=== PATIENT | female | born 1995 | race Caucasian/White ===

== ENCOUNTER → 2018-08-18 12:17 | Outpatient (CLI) | payer OTHER, MEDICAID, SELFPAY | PROVIDERS: PCP Family Medicine; Visit Provider Physician Assistant | DX: N89.8 Other specified noninflammatory disorders of vagina (principal) | CPT/HCPCS: 87210 ==

== ENCOUNTER → 2018-09-27 09:51 | Outpatient (CLI) | payer OTHER, MEDICAID, SELFPAY ==
--- NOTE | 2018-09-27 09:53 | DI.US.S_ITS ---
PROCEDURE: US PELVIC COMPLETE INDICATIONS: PAINFUL INTERCOURSE TECHNIQUE: Real-time scanning was performed of the pelvic organs, with image documentation. Additional endovaginal scanning was necessary due to incomplete visualization of the adnexal and endometrial structures by transabdominal scanning. COMPARISON: None. FINDINGS: Transabdominal scanning: Limited scanning through the kidneys shows no hydronephrosis. No pathologic free abdominal or pelvic fluid. Endovaginal scanning: Uterus: Uterus is normal in size at 7.4 x 3.8 x 5.4 cm. The endometrium measures 6 mm in combined thickness. Ovaries: Bilateral ovaries are normal in sonographic appearance. Right ovary measures 4.8 x 1.5 x 2.1 cm. Left ovary measures 3.6 x 1.1 x 1.5 cm. IMPRESSION: Normal sonographic evaluation of the pelvis. Dictated by: Thad Rodriguez M.D. on 09/27/2018 at 16:49 Approved by: Thad Rodriguez M.D. on 09/27/2018 at 16:51
== END ==
PROVIDERS: PCP Family Medicine; Visit Provider Registered Nurse
DX: N94.10 Unspecified dyspareunia (principal)
CPT/HCPCS: 76830; 76856

== ENCOUNTER → 2018-11-01 20:44 | Outpatient (CLI) | payer OTHER, MEDICAID, SELFPAY | PROVIDERS: PCP Family Medicine; Visit Provider Physician Assistant | DX: J02.9 Acute pharyngitis, unspecified (principal); J35.1 Hypertrophy of tonsils | CPT/HCPCS: 87070; 87077; 87147 ==

== ENCOUNTER 2018-11-09 19:37 | Emergency (ER) | payer OTHER, MEDICAID, SELFPAY ==
[2018-11-09 19:41] VITALS: BP 116/77; PULSE 103; RESP 16; TEMP 37.3; O2SAT 95; BMI 21.7
--- NOTE | 2018-11-09 19:59 | ED_ITS ---
HPI - Allergic Reaction General Chief complaint: Allergic Reaction Stated complaint: states severe reaction to antibiotic Time Seen by Provider: 11/09/18 19:59 Source: patient Mode of arrival: ambulatory Limitations: no limitations History of Present Illness HPI narrative: 23-year-old female here for evaluation of which she thinks is an allergic reaction to antibiotics. Approximately 7 days ago she was started on Augmentin for a sinus infection. She stated that she has not had any issues until this morning. She states she has a rash on her face and on her back and on her abdomen. She states that it is itching. No problems breathing however she did have a ?itchy? throat earlier today. She did take some Benadryl would seem to improve symptom. Has not had any return of that symptom. Related Data Previous Rx's Medication Instructions Recorded triamcinolone acetonide 0.025 % 1 applictn TOPICAL BID #80 gram 06/08/18 topical cream norethindrone 1 mg-ethinyl 1 tab PO DAILY #140 tab 08/17/18 estradiol 10 mcg (24)-iron 10 mcg(2) tablet amoxicillin 875 mg-potassium 1 tab PO BID #20 tab 11/01/18 clavulanate 125 mg tablet fluconazole 150 mg tablet 150 mg PO ONCE #2 tab 11/08/18 acyclovir 400 mg tablet 400 mg PO BID #60 tab 11/09/18 prednisone 40 mg PO DAILY 7 Days #14 tab 11/09/18 Allergies Allergy/AdvReac Type Severity Reaction Status Date / Time Penicillins Allergy Intermediate rash Verified 11/09/18 09:38 Review of Systems Constitutional Denies fever(s) Eyes Denies change in vision and Denies diplopia ENT Comments: ?Itchy ?throat Cardiovascular Denies chest pain and Denies dyspnea Respiratory Denies cough and Denies dyspnea Gastrointestinal Gastrointestinal: Denies abdominal pain, Denies nausea and Denies vomiting Genitourinary Denies dysuria Musculoskeletal Denies myalgias and Denies arthralgias Integumentary/Breasts Comments: Rash Neurologic Denies behavioral changes Psychiatric Denies behavioral changes Hematologic/Lymphatic Denies easy bleeding and Denies easy bruising Allergic/Immunologic Denies urticaria [facility] Medical History Anxiety (Chronic) Asthma (Chronic) Eczema (Chronic 2015) Gluten-sensitive enteropathy (Chronic 2015) Hayfever (Chronic) Social History Smoking Status: Former smoker alcohol intake: current substance use type: marijuana Exam Initial Vital Signs Initial Vital Signs: Vital Signs Temperature 99.2 F 11/09/18 19:41 Pulse Rate 103 H 11/09/18 19:41 Respiratory Rate 16 11/09/18 19:41 Blood Pressure 116/77 11/09/18 19:41 Pulse Oximetry 95 11/09/18 19:41 Const General: cooperative, healthy appearing, comfortable, well developed, well groomed and No acute distress Orientation: alert, awake and oriented x3 HENMT Head: normal to inspection and normocephalic Resp Effort & Inspection: normal respiratory effort Auscultation: clear to auscultation bilaterally Cardio Rate: regular rate Rhythm: regular rhythm Skin Other: Multiple urticarial lesions on her face and abdomen and chest and back and upper extremities. Neuro General: alert, awake and oriented x3 Extrem General: normal to inspection and capillary refill normal Course Orders Ordered: Discontinued Medications Diphenhydramine HCl (Benadryl) 25 mg IV NOW ONE Stop: 11/09/18 20:06 Last Admin: 11/09/18 20:21 Dose: 25 mg Methylprednisolone (Solu-Medrol 125 Mg Vial) 125 mg IV NOW ONE Stop: 11/09/18 20:06 Last Admin: 11/09/18 20:21 Dose: 125 mg Vital Signs - 8 hr 11/09/18 19:41 11/09/18 21:25 Temperature 99.2 F 98.4 F Pulse Rate 103 H 80 Respiratory Rate 16 16 Blood Pressure 116/77 Blood Pressure [Left Arm] 101/64 Pulse Oximetry 95 100 MDM - Allergic Reaction MDM Narrative Medical decision making narrative: Patient without signs of anaphylaxis. She was given Benadryl and Solu-Medrol here in the emergency department with only minimal if any improvement of her symptoms while she is here. She is not in any respiratory distress. Will send home with prednisone. She does have Claritin and Benadryl at home. She is going to stop the Augmentin. We did discuss return precautions. She expressed understanding and agreement with plan. Discharge Plan Departure Patient Disposition: Home Clinical Impression: Allergic reaction Qualifiers: Encounter type: initial encounter Qualified Code(s): T78.40XA - Allergy, unspecified, initial encounter Discharge Date/Time: 11/09/18 21:41 Interventions: ED Discharge Assessment Last Done: 11/09/18 21:40 Instructions: DI for General Allergic Reactions, DI for Adverse Drug Reaction -- Allergic Activity Restrictions/Additional Instructions: Take the prednisone starting tomorrow like we discussed. I also recommend you t jessy a Claritin on a daily basis. You can take the Benadryl like we discussed as well. On Monday contact your primary provider for a follow-up. Recommend you stop taking the Augmentin. Return to the emergency department for any new or worsening symptoms Prescriptions: New prednisone 20 mg tablet 40 mg PO DAILY 7 Days Qty: 14 RF: 0 No Action amoxicillin-pot clavulanate [Augmentin] 875-125 mg tablet 1 tab PO BID Qty: 20 RF: 0 fluconazole 150 mg tablet 150 mg PO ONCE Qty: 2 RF: 1 acyclovir 400 mg tablet 400 mg PO BID Qty: 60 RF: 1 triamcinolone acetonide 0.025 % cream 1 applictn Topical BID Qty: 80 RF: 0 Lo Loestrin Fe 1 mg-10 mcg (24)/10 mcg (2) tablet 1 tab PO DAILY Qty: 140 RF: 2 Referrals: Mindy Hurst DO [Primary Care Provider] -
[2018-11-09] MEDS: methylPREDNISolone 125 MG/2 ML VIAL IV (20:21)
[2018-11-09] MEDS: diphenhydrAMINE 50 MG/ML VIAL 25 MG IV (20:21)
--- NOTE | 2018-11-09 20:29 | PC.NURSE ---
Pt with rash which covers complete face on chest back and abdomen more solid on the upper part of body and turns into spots the lower down. rash seen on hands
[2018-11-09 21:25] VITALS: BP 101/64; PULSE 80; RESP 16; TEMP 36.9; O2SAT 100
== END 2018-11-09 21:41 | disposition home or self-care (01) ==
PROVIDERS: Emergency Provider Emergency Medicine; PCP Family Medicine
DX: R21 Rash and other nonspecific skin eruption (principal); T78.40XA Allergy, unspecified, initial encounter
CPT/HCPCS: 96374; 96375; 99282; 99284; J1200; J2930

== ENCOUNTER 2018-11-11 09:07 | Emergency (ER) | payer OTHER, MEDICAID, SELFPAY ==
[2018-11-11 09:10] VITALS: BP 126/71; PULSE 93; RESP 18; TEMP 36.9; O2SAT 100; BMI 21.7
[2018-11-11] MEDS: EPINEPHrine 1 MG/ML AMPUL 0.5 MG IM (09:21)
[2018-11-11] MEDS: methylPREDNISolone 125 MG/2 ML VIAL IV (09:21)
[2018-11-11] MEDS: diphenhydrAMINE 50 MG/ML VIAL 25 MG IV (09:21)
[2018-11-11] MEDS: FAMOTIDINE 20 MG/50 ML PIGGYBACK 200 MG IV (09:22)
--- NOTE | 2018-11-11 09:30 | ED_ITS ---
HPI - Allergic Reaction General Chief complaint: Allergic Reaction Stated complaint: Allergic reaction Time Seen by Provider: 11/11/18 09:12 Source: patient Mode of arrival: ambulatory Limitations: no limitations History of Present Illness HPI narrative: 23-year-old female, former smoker with benign medical history returns for a repeat evaluation of allergic reaction. About 8 days ago she was placed on Augmentin for the treatment of sinus infection. Late into the week she began developing a widespread itchy rash, at no point has she had any swelling of tongue, lip or throat, no trouble breathing. She was seen and evaluated in the emergency department on Monday night and was given Benadryl, Solu-Medrol and prescription for prednisone. She has stopped the Augmentin and been taking the other medications as directed but presents today because her rash is a bit more widespread MD complaint: allergic reaction Onset (ago): day(s) Exposure: medication Symptoms: rash and itching Severity: moderate Treatment prior to arrival: benadryl and steroids Previous Allergic Reaction History: prior ED visit(s) Related Data Previous Rx's Medication Instructions Recorded triamcinolone acetonide 0.025 % 1 applictn TOPICAL BID #80 gram 06/08/18 topical cream norethindrone 1 mg-ethinyl 1 tab PO DAILY #140 tab 08/17/18 estradiol 10 mcg (24)-iron 10 mcg(2) tablet amoxicillin 875 mg-potassium 1 tab PO BID #20 tab 11/01/18 clavulanate 125 mg tablet fluconazole 150 mg tablet 150 mg PO ONCE #2 tab 11/08/18 acyclovir 400 mg tablet 400 mg PO BID #60 tab 11/09/18 prednisone 40 mg PO DAILY 7 Days #14 tab 11/09/18 Allergies Allergy/AdvReac Type Severity Reaction Status Date / Time Penicillins Allergy Intermediate rash Verified 11/09/18 09:38 Review of Systems Constitutional Denies chills, Denies fever(s), Denies lethargy and Denies weakness Eyes Denies change in vision, Denies eye discharge, Denies irritation and Denies loss of vision ENT Ears, Nose, Mouth, and Throat: Denies change in voice, Denies neck pain and Denies sore throat Cardiovascular Denies chest pain, Denies irregular heart rhythm, Denies lightheadedness, Denies palpitations, Denies dyspnea, Denies dyspnea on exertion and Denies orthopnea Respiratory Denies cough, Denies dyspnea, Denies dyspnea on exertion and Denies wheezing Gastrointestinal Gastrointestinal: Denies abdominal pain, Denies change in bowel habits, Denies diarrhea, Denies nausea and Denies vomiting Genitourinary Denies hematuria, Denies flank pain, Denies urinary incontinence and Denies urinary urgency Musculoskeletal Denies neck pain Integumentary/Breasts Reports pruritus, Denies erythema, Denies rash and Denies wounds Neurologic Denies confusion, Denies loss of vision and Denies weakness Psychiatric Denies anxiety, Denies confusion, Denies depression, Denies homicidal ideation and Denies suicidal ideation Endocrine Denies palpitations Hematologic/Lymphatic Denies easy bruising Allergic/Immunologic Denies wheezing PFSH Medical History Anxiety (Chronic) Asthma (Chronic) Eczema (Chronic 2015) Gluten-sensitive enteropathy (Chronic 2014) Hayfever (Chronic) Surgical History No history of previous surgery (Resolved 06/06/16) Family History Father Age: 55 Essential hypertension High cholesterol Grandfather Age: 72 Rectal cancer Grandmother Age: 71 Sjogren's disease Mother Age: 51 Gluten free diet Peanut allergy Grandfather Age: 83 Heart disease Brother No problems noted. Grandmother No problems noted. Sister No problems noted. Social History Smoking Status: Former smoker alcohol intake: current substance use type: marijuana Family History Father Age: 55 Essential hypertension High cholesterol Grandfather Age: 72 Rectal cancer Grandmother Age: 71 Sjogren's disease Mother Age: 51 Gluten free diet Peanut allergy Grandfather Age: 83 Heart disease Brother No problems noted. Grandmother No problems noted. Sister No problems noted. Social History Smoking Status: Current some day smoker alcohol intake: current substance use type: marijuana Exam Narrative Exam Narrative: GENERAL: 23F appears stated age, obviously uncomfortable and itching HEAD: Atraumatic. Normocephalic. No temporal or scalp tenderness. EYES: Pupils equal round and reactive. Extraocular motions intact. No scleral icterus. No injection or drainage. ENT: No mucosal sloughing. No swelling of lips, tongue, or throat. Nose without bleeding, purulent drainage or septal hematoma. Throat without erythema, tonsillar hypertrophy or exudate. Uvula midline. Airway patent. NECK: Trachea midline. No JVD or lymphadenopathy. Supple, nontender, no meningeal signs. CARDIOVASCULAR: Regular rate and rhythm without murmurs, gallops, or rubs. RESPIRATORY: Clear to auscultation. Breath sounds equal bilaterally. No wheezes, rales, or rhonchi. GASTROINTESTINAL: Abdomen soft, non-tender, nondistended. No hepato- splenomegaly, or palpable masses. No guarding. EXTREMITIES: No clubbing, cyanosis, or edema. No joint tenderness, effusion, or edema noted. BACK: Nontender without deformity or crepitance. No flank tenderness. NEURO: AOx3. SKIN: widespread blanching maculopapular rash. No urticaria. No bullae or Nikolsky Sign Initial Vital Signs Initial Vital Signs: Vital Signs Temperature 98.4 F 11/11/18 09:10 Pulse Rate 93 H 11/11/18 09:10 Respiratory Rate 18 11/11/18 09:10 Blood Pressure 126/71 11/11/18 09:10 Pulse Oximetry 100 11/11/18 09:10 Course Orders Ordered: Discontinued Medications Diphenhydramine HCl (Benadryl) 25 mg IV NOW ONE Stop: 11/11/18 09:14 Last Admin: 11/11/18 09:21 Dose: 25 mg Epinephrine HCl (Adrenalin) 0.5 mg IM NOW ONE Stop: 11/11/18 09:14 Last Admin: 11/11/18 09:21 Dose: 0.5 mg Famotidine (Pepcid) 20 mg in 50 mls @ 200 mls/hr IV NOW ONE Stop: 11/11/18 09:27 Last Infusion: 11/11/18 09:53 Dose: 0 mls/hr Admin: 11/11/18 09:22 Dose: 200 mls/hr Methylprednisolone (Solu-Medrol 125 Mg Vial) 125 mg IV NOW ONE Stop: 11/11/18 09:14 Last Admin: 11/11/18 09:21 Dose: 125 mg Vital Signs - 8 hr 11/11/18 11:10 11/11/18 12:33 Pulse Rate 93 H 78 Respiratory Rate 16 Blood Pressure [Right Arm] 114/56 L 111/63 Pulse Oximetry 98 100 MDM - Allergic Reaction Lab Data Result diagrams: 11/11/18 09:15 11/11/18 09:15 Lab Results 11/11/18 11/11/18 Range/Units 09:15 09:15 WBC 6.1 (4.5-11.0) X10^3/uL RBC 4.39 (4.0-5.2) X10^6/uL Hgb 13.1 (12.0-16.0) g/dL Hct 39.3 (36-46) % MCV 89.5 (80-100) fL MCH 29.8 (26-34) PG MCHC 33.3 (30-36) % RDW 14.2 (11.6-14.8) % Plt Count 312 (150-400) X10^3/uL Neut % (Auto) 77.1 H (50-75) % Lymph % (Auto) 18.9 L (25-40) % [place]oula % (Auto) 2.6 L (3-14) % Eos % (Auto) 1.0 L (2-4) % Baso % (Auto) 0.4 (0-2) % Neut # (Auto) 4700 (9578-2842) /uL Lymph # (Auto) 1200 (3079-7226) /uL [place] # (Auto) 200 (0-900) /uL Eos # (Auto) 100 (0-450) /uL Baso # (Auto) 0 (0-100) /uL Sodium 140 (137-145) mmol/L Potassium 3.9 (3.4-5.1) mmol/L Chloride 104 (98-107) mmol/L Carbon Dioxide 29 (22-32) mmol/L BUN 17 (7-17) mg/dL Creatinine 0.90 (0.52-1.04) mg/dL Estimated GFR > 60.0 (>60) mL/min BUN/Creatinine Ratio 18.9 (6-22) Glucose 85 (70-100) mg/dL Calcium 9.3 (8.4-10.2) mg/dL Total Creatine Kinase 65 (30-135) U/L Point of Care Testing Test Results Negative MDM Narrative Medical decision making narrative: Multiple etiologies for patient's symptoms considered including: [SJS/TENS but no intraoral or systemic findings, allergic reaction vs. drug hypersensitivity] Patient's symptoms improved or duration of stay with above-stated therapies. Still has rash, but improved Findings and discharge diagnosis discussed with patient/family followed by verbalization of understanding Return precautions discussed with patient/family whom verbalize understanding. Discharge Plan Departure Patient Disposition: Home Clinical Impression: Allergic reaction Qualifiers: Encounter type: subsequent encounter Qualified Code(s): T78.40XD - Allergy, unspecified, subsequent encounter Discharge Date/Time: 11/11/18 12:42 Interventions: ED Discharge Assessment Last Done: 11/11/18 12:42 Instructions: DI for Hives Activity Restrictions/Additional Instructions: *You have been diagnosed with allergic reaction, drug hypersensitivity *What to do: *Take medications as directed *Follow up with your primary care provider in 2-3 days, call for an appointment. Let them know you were seen in the Emergency Department and that we ask that you be seen in follow up *Return to ER if you should have any new, worsening or concerning symptoms Prescriptions: No Action amoxicillin-pot clavulanate [Augmentin] 875-125 mg tablet 1 tab PO BID Qty: 20 RF: 0 fluconazole 150 mg tablet 150 mg PO ONCE Qty: 2 RF: 1 acyclovir 400 mg tablet 400 mg PO BID Qty: 60 RF: 1 triamcinolone acetonide 0.025 % cream 1 applictn Topical BID Qty: 80 RF: 0 Lo Loestrin Fe 1 mg-10 mcg (24)/10 mcg (2) tablet 1 tab PO DAILY Qty: 140 RF: 2 prednisone 20 mg tablet 40 mg PO DAILY 7 Days Qty: 14 RF: 0 Referrals: Mindy Hurst DO [Primary Care Provider] -
[2018-11-11 10:21] VITALS: BP 102/55; PULSE 105; RESP 16; O2SAT 99
[2018-11-11 11:03] LABS: Add Manual Diff / Slide Review NO; Basophils Absolute Auto 0 /uL (0-100); Basophils Percent Auto 0.4 % (0-2); Eosinophils Absolute Auto 100 /uL (0-450); Hematocrit 39.3 % (36-46); Hemoglobin 13.1 g/dL (12.0-16.0); Lymphocytes Absolute Auto 1200 /uL (1100-4500); Lymphocytes Percent Auto 18.9 % (25-40); Mean Corpuscular HGB Conc 33.3 % (30-36); Mean Corpuscular Hemoglobin 29.8 PG (26-34); Mean Corpuscular Volume 89.5 fL (80-100); Monocytes Absolute Auto 200 /uL (0-900); Monocytes Percent Auto 2.6 % (3-14); Neutrophils Absolute Auto 4700 /uL (1500-7000); Neutrophils Percent Auto 77.1 % (50-75); Platelet Count 312 X10^3/uL (150-400); Red Blood Cell Count 4.39 X10^6/uL (4.0-5.2); Red Cell Distribution Width 14.2 % (11.6-14.8); White Blood Cell Count 6.1 X10^3/uL (4.5-11.0)
[2018-11-11 11:07] LABS: BUN Creatinine Ratio 18.9 (6-22); Blood Urea Nitrogen 17 mg/dL (7-17); Calcium 9.3 mg/dL (8.4-10.2); Carbon Dioxide 29 mmol/L (22-32); Chloride 104 mmol/L (98-107); Creatine Kinase 65 U/L (30-135); Estimated Glomerular Filt Rate > 60.0 mL/min (>60); Glucose 85 mg/dL (70-100); HEMOLYSIS < 15 (0-50); Potassium 3.9 mmol/L (3.4-5.1); Sodium 140 mmol/L (137-145)
[2018-11-11 11:10] VITALS: BP 114/56; PULSE 93; O2SAT 98
[2018-11-11 12:33] VITALS: BP 111/63; PULSE 78; RESP 16; O2SAT 100
== END 2018-11-11 12:42 | disposition home or self-care (01) ==
PROVIDERS: Emergency Provider Emergency Medicine; PCP Family Medicine
DX: R21 Rash and other nonspecific skin eruption (principal); T78.40XD Allergy, unspecified, subsequent encounter
CPT/HCPCS: 36591; 80048; 81025; 82550; 85025; 96365; 96372; 96375; 99283; 99284; J0171; J1200; J2930

== ENCOUNTER → 2018-12-05 14:14 | Outpatient (CLI) | payer OTHER, MEDICAID, SELFPAY ==
[2018-12-05 15:59] LABS: Appearance Urine UA CLEAR; Bilirubin Urine UA NEGATIVE (NEGATIVE); Color Urine UA YELLOW; Glucose Urine UA NEGATIVE (Negative); Ketones Urine UA NEGATIVE (NEGATIVE); Leukocyte Esterase Urine UA TRACE (NEGATIVE); Nitrite Urine UA NEGATIVE (Negative); Occult Blood Urine UA 2+ (Negative); Protein Urine UA NEGATIVE (Negative); Urobilinogen Urine UA 0.2 E.U./dL (0.2)
[2018-12-05 16:06] LABS: RBC Urine 10-30/HPF (0-5/HPF); WBC Urine 5-10/HPF (0-5/HPF)
[2018-12-05 16:07] LABS: Amorphous Sediment Urine 1+; Bacteria Urine Moderate (10-30); Culture Indicated Urine Specimen Cultured; Squamous Epithelial Cell Urine 0-1 /HPF (0-5/HPF)
== END ==
PROVIDERS: PCP Family Medicine; Visit Provider Registered Nurse
DX: R39.89 Other symptoms and signs involving the genitourinary system (principal)
CPT/HCPCS: 81001; 87077; 87086; 87186

== ENCOUNTER → 2019-04-01 16:46 | Outpatient (CLI) | payer OTHER, MEDICAID, SELFPAY | PROVIDERS: PCP Family Medicine; Visit Provider Family Medicine | DX: R30.0 Dysuria (principal) | CPT/HCPCS: 87077; 87086; 87186 ==

== ENCOUNTER → 2019-07-02 19:43 | Outpatient (ROUT) | payer OTHER, MEDICAID, SELFPAY ==
[2019-07-02 21:13] LABS: Urine N gonorrhoeae NOT DETECTED
[2019-07-02 21:14] LABS: Urine Chlamydia NOT DETECTED
== END ==
PROVIDERS: PCP Family Medicine; Visit Provider Family Medicine
DX: Z20.2 Contact with and (suspected) exposure to infections with a predominantly sexual mode of transmission (principal)
CPT/HCPCS: 87491; 87591

== ENCOUNTER → 2020-04-16 14:49 | Outpatient (CLI) | payer OTHER, MEDICAID, SELFPAY ==
--- NOTE | 2020-04-16 14:50 | DI.RAD.S_ITS ---
PROCEDURE: XR FINGER RT MIN 2V INDICATIONS: poss glass in R 2nd finger at base TECHNIQUE: AP hand, 2 views of the right 2nd finger(s) acquired. COMPARISON: None. FINDINGS: Bones: No fractures or dislocations. No suspicious bony lesions. Soft tissues: No suspicious soft tissue calcifications. 1 millimeter radiodense foreign body noted in the soft tissues adjacent to the mid and medial margin of the left 2nd flange. of the IMPRESSION: 1 millimeter radiodense foreign body in the medial and proximal soft tissues of the 2nd finger. Dictated by: Camryn Perez MD, PhD on 04/16/2020 at 15:11 Approved by: Camryn Perez MD, PhD on 04/16/2020 at 15:13
== END ==
PROVIDERS: PCP Family Medicine; Referring Provider Nurse Practitioner; Visit Provider Nurse Practitioner
DX: M79.644 Pain in right finger(s) (principal); M79.5 Residual foreign body in soft tissue
CPT/HCPCS: 73140

== ENCOUNTER → 2020-08-13 13:24 | Outpatient (CLI) | payer OTHER, MEDICAID, SELFPAY ==
[2020-08-13 13:53] LABS: Appearance Urine UA CLEAR; Bilirubin Urine UA NEGATIVE (NEGATIVE); Color Urine UA YELLOW; Glucose Urine UA NEGATIVE (Negative); Ketones Urine UA 1+ (NEGATIVE); Leukocyte Esterase Urine UA NEGATIVE (NEGATIVE); Nitrite Urine UA NEGATIVE (Negative); Occult Blood Urine UA 2+ (Negative); Protein Urine UA NEGATIVE (Negative); Urobilinogen Urine UA 0.2 E.U./dL (0.2)
[2020-08-13 14:25] LABS: pH Urine UA 6.5 (4.5-8.0)
[2020-08-13 14:26] LABS: Bacteria Urine Moderate (10-30); Culture Indicated Urine Cult Not Indicated; RBC Urine 1-5/HPF (0-5/HPF); Squamous Epithelial Cell Urine 1-5 /HPF (0-5/HPF); WBC Urine 0-1/HPF (0-5/HPF)
[2020-08-13 14:50] LABS: Add Manual Diff / Slide Review NO; Basophils Absolute Auto 0 /uL (0-100); Basophils Percent Auto 0.3 % (0-2); Eosinophils Absolute Auto 100 /uL (0-450); Eosinophils Percent Auto 1.2 % (2-4); Hematocrit 35.4 % (36-46); Hemoglobin 12.2 g/dL (12.0-16.0); Lymphocytes Absolute Auto 1600 /uL (1100-4500); Lymphocytes Percent Auto 22.2 % (25-40); Mean Corpuscular HGB Conc 34.4 % (30-36); Mean Corpuscular Volume 90.2 fL (80-100); Monocytes Absolute Auto 400 /uL (0-900); Monocytes Percent Auto 5.5 % (3-14); Neutrophils Absolute Auto 5000 /uL (1500-7000); Neutrophils Percent Auto 70.8 % (50-75); Platelet Count 270 X10^3/uL (150-400); Red Blood Cell Count 3.92 X10^6/uL (4.0-5.2); Red Cell Distribution Width 12.9 % (11.6-14.8); White Blood Cell Count 7.1 X10^3/uL (4.5-11.0)
[2020-08-13 16:47] LABS: Hepatitis B Surface Antigen NEGATIVE s/c (NEGATIVE); Rubella Antibody IgG 16.8 IU/mL (>15)
[2020-08-13 17:02] LABS: HIV 1 & 2 Ab/Ag 4th Gen Combo NEGATIVE (NEGATIVE); Hep C Virus Ab w/Reflex Quant NEGATIVE s/c (NEGATIVE)
[2020-08-14 07:10] LABS: RPR Screen Non Reactive (Non Reactive)
[2020-08-14 14:22] LABS: Varicella IgG Antibody 274 index (Immune >165)
== END ==
PROVIDERS: PCP Family Medicine; Referring Provider Obstetrics & Gynecology; Visit Provider Obstetrics & Gynecology
DX: Z34.81 Encounter for supervision of other normal pregnancy, first trimester (principal)
CPT/HCPCS: 36415; 80055; 81003; 81015; 86787; 86803; 86850; 86900; 86901; 87389

== ENCOUNTER → 2020-08-14 15:23 | Outpatient (CLI) | payer OTHER, MEDICAID, SELFPAY | PROVIDERS: PCP Family Medicine; Referring Provider Obstetrics & Gynecology; Visit Provider Obstetrics & Gynecology | DX: Z36.0 Encounter for antenatal screening for chromosomal anomalies (principal); Z3A.15 15 weeks gestation of pregnancy | CPT/HCPCS: 36415 ==

== ENCOUNTER → 2020-09-11 16:55 | Outpatient (CLI) | payer OTHER, MEDICAID, SELFPAY ==
[2020-09-15 19:07] LABS: AFP Value 63.5 ng/mL (.); Insulin Dep Diabetes No (.); OSBR Risk 1IN 10000 (.); Results Report (.); Test Results *Screen Negative* (.)
== END ==
PROVIDERS: PCP Family Medicine; Referring Provider Obstetrics & Gynecology; Visit Provider Obstetrics & Gynecology
DX: Z34.82 Encounter for supervision of other normal pregnancy, second trimester (principal); Z3A.19 19 weeks gestation of pregnancy
CPT/HCPCS: 36415; 82105

== ENCOUNTER → 2020-09-15 09:11 | Outpatient (CLI) | payer OTHER, MEDICAID, SELFPAY ==
--- NOTE | 2020-09-15 09:15 | DI.US.S_ITS ---
PROCEDURE: US OB >= 14 WEEKS FETUS INDICATIONS: ANATOMY OUTSIDE/PRIOR DATING DATA: Last menstrual period (LMP): 04/15/20 . LMP-based estimated date of delivery (DENISA): 01/20/21 . First dating scan (date and location): 06/19/20, by Dr. Joya. Estimated date of delivery (DENISA) from first dating scan: 02/01/21 . TECHNIQUE: Real-time scanning was performed of the fetus, with image documentation and biometric measurements. Endovaginal scanning: Not needed COMPARISON: [facility], , OB <= 14 WEEKS FETUS, 06/19/2020, 8:51. FINDINGS: General: A single living intrauterine gestation is present. Presentation: Breech. Placenta: Placental position is posterior , without previa. Amniotic fluid index: 12.1 cm, normal range is 5-24 cm. heart rate: 141 beats per minute. Maternal cervical canal: 4.5 cm long. Normal lower limit is 2.5 cm. biometrics: Biparietal diameter: 4.7 cm, 20 weeks 2 days Head circumference: 17.6 cm, 20 weeks 1 day Abdominal circumference: 16.2 cm, 21 weeks 2 days Femur length: 3.3 cm, 20 weeks 1 day Estimated gestational age from initial scan: 20 weeks 1 day Composite gestational age from present scan: 20 weeks 3 days Estimated weight and percentile: 370 g, 76th percentile Measurement variability for biometric dating: +/- 7 days from 14 weeks to 15 weeks 6 days gestation, +/- 10 days from 16 weeks to 21 weeks 6 days gestation, +/- 2 weeks from 22 weeks to 27 weeks 6 days gestation, +/- 3 weeks for 28 weeks gestation or later. weight reference: 4500 g or EFW >90/95% is considered macrosomia or large for gestational age. EFW <10% is small for gestational age. EFW 5% or less is considered intra-uterine growth restriction. Anatomic survey: Neuro: Ventricles are non-dilated at less than 10 mm. Cisterna magna is normal at 3-11 mm. Cerebellum is normal in size and morphology. Nuchal skin fold: Normal at less than 6 mm between 14-21 weeks gestational age. Face: Nose and lips, facial profile are normal. Spine: No evidence for spina bifida. Heart: 4-chambered heart is present, with normal ventricular outflow tracts. Diaphragm: Diaphragm is intact. Stomach: Left-sided stomach is present. Kidneys: No hydronephrosis. Normal is less than 5 mm in 2nd trimester, less than 7 mm in 3rd trimester. Cord: 3-vessel cord has orthotopic insertion. Bladder: Normal in size. Extremities: All 4 extremities identified. IMPRESSION: Single living intrauterine gestation with normal survey of anatomy and delivery date remains projected to be centered on 02/01/21. Dictated by: Baudiloi Mendez M.D. on 09/15/2020 at 12:17 Approved by: Baudilio Mendez M.D. on 09/15/2020 at 12:22
== END ==
PROVIDERS: PCP Family Medicine; Referring Provider Obstetrics & Gynecology; Visit Provider Obstetrics & Gynecology
DX: Z34.82 Encounter for supervision of other normal pregnancy, second trimester (principal); Z3A.20 20 weeks gestation of pregnancy
CPT/HCPCS: 76811

== ENCOUNTER 2020-11-02 10:25 | Emergency (ER) | payer OTHER, MEDICAID, SELFPAY ==
[2020-11-02 10:34] VITALS: BP 123/77; PULSE 98; RESP 18; TEMP 36.9; O2SAT 98
--- NOTE | 2020-11-02 11:35 | ED_ITS ---
HPI - Nausea/Vomiting/Diarrhea General Chief complaint: Nausea/Vomiting/Diarrhea Stated complaint: CAMILA CURRY, 7 MONTHS Time Seen by Provider: 11/02/20 11:35 Source: patient Mode of arrival: Ambulatory Limitations: no limitations History of Present Illness HPI Narrative: This is a 25-year-old female who comes to the emergency department with nausea and vomiting that actually started Monday. She states she had food poisoning. Both her and her father had GI symptoms. At that time she had nausea and vomiting as well as diarrhea. She did have some abdominal discomfort for the generalized. Patient did have a fever but states she was told she had a fever today at the clinic but they did not give her a number. Patient states that today she went to get her eyelashes done, she states she was lying flat started to feel nauseated and sort of lightheaded. When she sat back up she went to the bathroom and threw up several times. She states they appeared to be a little bit of blood in the water of the toilet. Patient denies any new chest pain or pressure. She has had some mild shortness of breath that worsened as she has become more . Patient states that her vomiting from her food poisoning had resolved after a day or 2. She is feeling better and then last night started having nausea and vomiting again overnight, which her appointment for her eyelashes and then had her subsequent episode. Patient has not had any syncope. She has not had any diarrhea today. She has not any black or bloody stools. She denies any dysuria, frequency urgency. She does have some generalized low back discomfort throughout her . She does not specify any flank pain. Patient states she has some pink spotting last week with no additional since. Patient states this is been intermittent throughout her . She denies any katherine vaginal bleeding and denies any fluid leakage. She states she feels baby move regularly. She has had care initially with Dr. Joya and as transition to Dr. Harrington. She states her only medications are prenatals. Denies any surgeries. Patient does not use any tobacco, alcohol or illicit she is accompanied by family the room. Related Data Previous Rx's Medication Instructions Recorded vits no.126-ferrous fum 1 tab PO DAILY 90 Days #90 tab 06/11/20 28 mg iron-folic acid 800 mcg tablet metoclopramide HCl 10 mg tablet 10 mg PO Q6H PRN #20 tab 08/14/20 acyclovir 400 mg tablet See Rx Instructions .ROUTE 10/21/20 .COMPLEX #60 tab Allergies Allergy/AdvReac Type Severity Reaction Status Date / Time Penicillins Allergy Severe rash Verified 10/12/20 16:14 gluten AdvReac Intermediate Sharp Verified 10/12/20 16:14 stomach pain, constipation, nausea. Review of Systems Review of Systems ROS Unobtainable: All systems reviewed & are unremarkable except as noted in HPI and below Patient History Medical History Anxiety (~1994) Arm fracture, right (~2006) Asthma Depression (~2007) Eczema (2015) Finger pain (~04/2020) Gluten-sensitive enteropathy (2014) Hayfever (~2004) Migraines (~2004) Surgical History No history of previous surgery (06/06/16) Family History Father Age: 57 Essential hypertension High cholesterol Grandfather Age: 74 Rectal cancer Grandmother Age: 73 Sjogren's disease Mother Age: 53 Gluten free diet Peanut allergy Grandfather Age: 85 Heart disease Brother No problems noted. Grandmother Myocardial infarction acute Stroke Sister Anxiety Depression Social History marital status: unmarried,living together number of children: 1 household members: spouse and children lives independently: Yes caregiver/support person: No housing: house pets and animals: Yes (2 dogs, safe. ) education level: college occupational status: unemployed current occupational exposures/hazards: No blanquita/mu-ism: Yarsani special blanquita needs: No Smoking Status: Former smoker Tobacco: How many years used: 4 quit status: has quit before alcohol intake: current substance use type: marijuana during the past year weight has: remained stable well-balanced diet: daily or most days daily servings fruits/ve-4 caffeine: Yes (Coffee, aversion lately. ) Type(s) of exercise: walking and normal ROM and activity frequency: daily Smoking Status: Former smoker alcohol intake frequency: a few times a month Substance Use Type: marijuana Exam Narrative Exam Narrative: GENERAL: Alert and oriented x three, opinion female in mild distress. Patient was ambulating back from the bathroom to the room when 1st seen. HEENT: Head normocephalic, atraumatic, EOMI, pupils reactive, face symmetric, moist mucous membranes NECK: Supple, full range of motion CARDIOVASCULAR: Regular rate and rhythm without murmurs, rubs or gallops. RESPIRATORY: Breath sounds equal bilaterally, no wheezes rales or rhonchi. ABDOMEN: Soft, nontender palpation gravid. Normoactive bowel sounds all 4 quadrants. No guarding or rebound, rigidity, no mass : No CVA tenderness EXTREMITIES: Normal range of motion, no clubbing or edema. Neurovascularly intact NEUROLOGICAL: Cranial nerves II through XII grossly intact. Moving all extremities SKIN: Warm, dry, no petechiae, no rashes or lesions. Initial Vital Signs Initial Vital Signs: Vital Signs Temperature 98.5 F 11/02/20 10:34 Pulse Rate 98 H 11/02/20 10:34 Respiratory Rate 18 11/02/20 10:34 Blood Pressure 123/77 11/02/20 10:34 Pulse Oximetry 98 11/02/20 10:34 Course Orders Ordered: ED Orders 11/02/20 11:51 US abdomen limited Stat 11/02/20 12:15 Complete Blood Count AUTO DIFF Stat Comprehensive Metabolic Panel Stat Lipase Stat Discontinued Medications Sodium Chloride (Normal Saline 0.9%) 1,000 mls @ 1,000 mls/hr IV BOLUS ONE Stop: 11/02/20 12:50 Last Infusion: 11/02/20 13:36 Dose: 0 mls/hr Documented by: Admin: 11/02/20 12:11 Dose: 1,000 mls/hr Documented by: NAYELI Ondansetron HCl (Ondansetron 4 Mg/2 Ml Inj) 4 mg IV NOW ONE Stop: 11/02/20 11:52 Last Admin: 11/02/20 12:10 Dose: 4 mg Documented by: NAYELI Reevaluation(s) Reevaluation #1: recheck, reviewed findings. Time: 12:42 Vital Signs Vital signs: Vital Signs - 8 hr 11/02/20 13:04 Pulse Rate 66 Respiratory Rate 14 Blood Pressure 96/55 L Pulse Oximetry 99 MDM - Nausea/Vomiting/Diarrhea Lab Data Attestation: I reviewed the patient's lab results. Result diagrams: 11/02/20 12:15 11/02/20 12:15 Labs: Lab Results 11/02/20 11/02/20 11/02/20 Range/Units 12:15 12:15 12:15 WBC 7.2 (4.5-11.0) X10^3/uL RBC 3.57 L (4.0-5.2) X10^6/uL Hgb 11.1 L (12.0-16.0) g/dL Hct 32.1 L (36-46) % MCV 90.1 (80-100) fL MCH 31.2 (26-34) PG MCHC 34.7 (30-36) % RDW 13.2 (11.6-14.8) % Plt Count 199 (150-400) X10^3/uL Neut % (Auto) 71.9 (50-75) % Lymph % (Auto) 16.7 L (25-40) % Armstrong % (Auto) 7.4 (3-14) % Eos % (Auto) 3.8 (2-4) % Baso % (Auto) 0.2 (0-2) % Neut # (Auto) 5200 (2414-6354) /uL Lymph # (Auto) 1200 (5163-7442) /uL Armstrong # (Auto) 500 (0-900) /uL Eos # (Auto) 300 (0-450) /uL Baso # (Auto) 0 (0-100) /uL Sodium 134 L (137-145) mmol/L Potassium 3.3 L (3.4-5.1) mmol/L Chloride 102 (98-107) mmol/L Carbon Dioxide 28 (22-32) mmol/L BUN 9 (7-17) mg/dL Creatinine 0.59 (0.52-1.04) mg/dL Estimated GFR > 60.0 (>60) mL/min BUN/Creatinine Ratio 15.3 (6-22) Glucose 75 (70-100) mg/dL Calcium 9.3 (8.4-10.2) mg/dL Total Bilirubin 0.3 (0.2-1.3) mg/dL AST 36 (14-36) IU/L ALT 29 (<35) IU/L Alkaline Phosphatase 71 (38-126) U/L Total Protein 6.4 (6.3-8.2) g/dL Albumin 3.5 (3.5-5.0) g/dL Globulin 2.9 (1.7-4.1) g/dL Albumin/Globulin Ratio 1.2 (1.0-2.8) Lipase 178 (23-300) U/L Urine Dip Bedside Urine Glucose Negative Bedside Urine Bilirubin - Negative Bedside Urine Ketone - Negative Urine Specific [place] 1.010 Bedside Urine Occult Blood - Negative Bedside Urine pH 7.5 Bedside Urine Protein - Negative Bedside Urine Urobilinogen - Negative Bedside Urine Nitrite - Negative Bedside Urine Leukocytes - Negative Esterase Imaging Data US - abdomen: Radiologist's Impression: [address] [id number] ReportSigned Patient: Pearl Araujo LMR#: [id number]: [id number]:[id number]/Sex: 25 / FDate of Service: 11/02/20Loc: EDAccession Number: [id number] Procedure: US abdomen limited Ordering Provider: Vilma Calixto D.O. PROCEDURE: US ABDOMEN LIMITED INDICATIONS: n/v several days, 7 months preg TECHNIQUE: Real-time focused scanning was performed of the abdomen, with image documentation. COMPARISON: [facility], US, US OB >= 14 WEEKS FETUS, 09/15/2020, 9:24. FINDINGS: The liver is normal in size and demonstrates no focal lesions. No findings of gallstones or sludge are seen. The gallbladder wall is not thickened, measuring 3 mm or less. No specific pericholecystic fluid is seen. The sonographic Chandler sign is negative. There is no biliary dilatation, the common bile duct measures 4 mm. No significant pancreatic abnormality is seen on these images. This patient is , with a measured heart rate of 139 beats per minute. No ascites is detected. IMPRESSION: The gallbladder demonstrates a normal sonographic appearance. No biliary dilatation is seen. Dictated by: Immanuel Silveira M.D. on 11/02/2020 at 11:19 Approved by: Immanuel Silveira M.D. on 11/02/2020 at 11:20 MDM Narrative Medical decision making narrative: This is a 25-year-old female who comes in with nausea which has actually been intermittent since earlier this week early in the week patient's father had similar symptoms in the assumed was food poisoning. Since then she has been improving but last night did have some episodes. Today she went to get her eyelashes done and was lying flat and started to feel ill afterwards went to the bathroom and had another episode of nausea and vomiting. Patient has not had a subsequent here in the department. We did discuss that laying flat when she can compress her IVC /large blood vessel in her abdomen and cause lightheadedness, nausea vomiting passing out but this should not have caused her mother symptoms. Labs do show slight hypokalemia. Patient urine is negative. Patient's ultrasound does not show any acute changes. heart tones were 139. patient does not have any hypertension her in the department. plan for watchful waiting, patient was given some fluids the department as well as prescription for short-term for Zofran. Patient notes she has also had a lot of heartburn we discussed she can take Tums and reviewed maximum amount in . patient is going to follow up this week for from primary care. Discharge Plan Departure Patient Disposition: Home Clinical Impression: Vomiting affecting Activity Restrictions/Additional Instructions: Follow-up with your care provider next 2-3 days for recheck. You may take Zofran 1 tablet every 6 hours as needed for nausea. Your imaging today does not show any acute changes. Your labs show a mildly low potassium as well as a lead that appears that does not appear significantly worsened. Please return if you have fevers greater 100.4 F, no worsening chest pain shortness of breath, abdominal pain, back or flank pain, persistent vomiting, black or bloody stools, if you are having vaginal bleeding, gush of fluid or pelvic cramping. Prescriptions: No Action acyclovir 400 mg tablet See Rx Instructions .ROUTE .COMPLEX Qty: 60 RF: 0 Classic 28 mg iron- 800 mcg tablet 1 tab PO DAILY 90 Days Qty: 90 RF: 3 metoclopramide HCl [Reglan] 10 mg tablet 10 mg PO Q6H PRN (Reason: nausea and vomiting) Qty: 20 RF: 0 Referrals: Deborah Harrington MD [Physician] - Mindy Hurst DO [Primary Care Provider] - Stand Alone Forms: Work Release Note
--- NOTE | 2020-11-02 11:51 | DI.US.S_ITS ---
PROCEDURE: US ABDOMEN LIMITED INDICATIONS: n/v several days, 7 months preg TECHNIQUE: Real-time focused scanning was performed of the abdomen, with image documentation. COMPARISON: [facility], US, US OB >= 14 WEEKS FETUS, 09/15/2020, 9:24. FINDINGS: The liver is normal in size and demonstrates no focal lesions. No findings of gallstones or sludge are seen. The gallbladder wall is not thickened, measuring 3 mm or less. No specific pericholecystic fluid is seen. The sonographic Hcandler sign is negative. There is no biliary dilatation, the common bile duct measures 4 mm. No significant pancreatic abnormality is seen on these images. This patient is , with a measured heart rate of 139 beats per minute. No ascites is detected. IMPRESSION: The gallbladder demonstrates a normal sonographic appearance. No biliary dilatation is seen. Dictated by: Immanuel Silveira M.D. on 11/02/2020 at 11:19 Approved by: Immanuel Silveira M.D. on 11/02/2020 at 11:20
[2020-11-02] MEDS: ONDANSETRON 4 MG/2 ML INJ IV (12:10)
[2020-11-02] MEDS: SODIUM CHLORIDE 0.9% 1,000 ML 1000 ML IV (12:11)
[2020-11-02 12:21] LABS: Add Manual Diff / Slide Review NO; Basophils Absolute Auto 0 /uL (0-100); Basophils Percent Auto 0.2 % (0-2); Eosinophils Absolute Auto 300 /uL (0-450); Eosinophils Percent Auto 3.8 % (2-4); Hematocrit 32.1 % (36-46); Hemoglobin 11.1 g/dL (12.0-16.0); Lymphocytes Absolute Auto 1200 /uL (1100-4500); Lymphocytes Percent Auto 16.7 % (25-40); Mean Corpuscular HGB Conc 34.7 % (30-36); Mean Corpuscular Hemoglobin 31.2 PG (26-34); Mean Corpuscular Volume 90.1 fL (80-100); Monocytes Absolute Auto 500 /uL (0-900); Monocytes Percent Auto 7.4 % (3-14); Neutrophils Absolute Auto 5200 /uL (1500-7000); Neutrophils Percent Auto 71.9 % (50-75); Platelet Count 199 X10^3/uL (150-400); Red Blood Cell Count 3.57 X10^6/uL (4.0-5.2); Red Cell Distribution Width 13.2 % (11.6-14.8); White Blood Cell Count 7.2 X10^3/uL (4.5-11.0)
[2020-11-02 12:33] LABS: Alanine Aminotransferase 29 IU/L (<35); Albumin 3.5 g/dL (3.5-5.0); Albumin Globulin Ratio 1.2 (1.0-2.8); Alkaline Phosphatase 71 U/L (38-126); Aspartate Aminotransferase 36 IU/L (14-36); BUN Creatinine Ratio 15.3 (6-22); Bilirubin Total 0.3 mg/dL (0.2-1.3); Blood Urea Nitrogen 9 mg/dL (7-17); Calcium 9.3 mg/dL (8.4-10.2); Carbon Dioxide 28 mmol/L (22-32); Chloride 102 mmol/L (98-107); Estimated Glomerular Filt Rate > 60.0 mL/min (>60); Globulin 2.9 g/dL (1.7-4.1); Glucose 75 mg/dL (70-100); HEMOLYSIS < 15 (0-50); Lipase 178 U/L (23-300); Potassium 3.3 mmol/L (3.4-5.1); Sodium 134 mmol/L (137-145); Total Protein 6.4 g/dL (6.3-8.2)
[2020-11-02 13:04] VITALS: BP 96/55; PULSE 66; RESP 14; O2SAT 99
== END 2020-11-02 13:36 | disposition home or self-care (01) ==
PROVIDERS: Emergency Provider Emergency Medicine; PCP Family Medicine
DX: O26.893 Other specified pregnancy related conditions, third trimester (principal); R19.7 Diarrhea, unspecified; R11.2 Nausea with vomiting, unspecified
CPT/HCPCS: 36415; 76705; 80053; 81003; 83690; 85025; 96361; 96374; 99284; J2405

== ENCOUNTER → 2020-11-26 07:21 | Outpatient (CLI) | payer OTHER, MEDICAID, SELFPAY ==
[2020-11-26 08:45] LABS: Hematocrit 28.8 % (36-46); Hemoglobin 10.1 g/dL (12.0-16.0)
[2020-11-26 08:56] LABS: GTT (PREG) 1 Hour PP 50gm Dose 123 mg/dL (76-139)
== END ==
PROVIDERS: PCP Family Medicine; Referring Provider Family Medicine; Visit Provider Family Medicine
DX: Z34.90 Encounter for supervision of normal pregnancy, unspecified, unspecified trimester (principal); Z3A.28 28 weeks gestation of pregnancy
CPT/HCPCS: 36415; 82950; 85014; 85018

== ENCOUNTER → 2020-12-28 09:55 | Outpatient (CLI) | payer OTHER, MEDICAID, SELFPAY ==
[2020-12-29 07:58] LABS: Strep Grp B PCR NEG for Grp B Strep
== END ==
PROVIDERS: PCP Family Medicine; Visit Provider Family Medicine
DX: Z34.90 Encounter for supervision of normal pregnancy, unspecified, unspecified trimester (principal); Z3A.36 36 weeks gestation of pregnancy
CPT/HCPCS: 87653

== ENCOUNTER 2021-01-05 11:38 | Observation (INO) | payer OTHER, MEDICAID, SELFPAY ==
--- NOTE | 2021-01-05 13:32 | PM.OBTRLD ---
Visit Information Visit Information Date of evaluation: 01/05/21 Primary OB Provider: Mindy Hurst Reason for Evaluation: Yes other Comments/Additional reasons for admission: Decreased movement Vital Signs Vital Signs: Temperature 36.2? blood pressure 110/62 heart rate 83 PFSH Medical History Anxiety (~1994) Arm fracture, right (~2006) Asthma Depression (~2007) Eczema (2015) Finger pain (~04/2020) Gluten-sensitive enteropathy (2014) Hayfever (~2004) Migraines (~2004) Surgical History No history of previous surgery (06/06/16) Family History Father Age: 57 Essential hypertension High cholesterol Grandfather Age: 74 Rectal cancer Grandmother Age: 73 Sjogren's disease Mother Age: 53 Gluten free diet Peanut allergy Grandfather Age: 85 Heart disease Brother No problems noted. Grandmother Myocardial infarction acute Stroke Sister Anxiety Depression Social History marital status: unmarried,living together number of children: 1 household members: spouse and children lives independently: Yes caregiver/support person: No housing: house pets and animals: Yes (2 dogs, safe. ) education level: college occupational status: unemployed current occupational exposures/hazards: No blanquita/zoroastrianism: Pentecostalism special blanquita needs: No Smoking Status: Former smoker Tobacco: How many years used: 4 quit status: has quit before alcohol intake: current substance use type: marijuana during the past year weight has: remained stable well-balanced diet: daily or most days daily servings fruits/ve-4 caffeine: Yes (Coffee, aversion lately. ) Type(s) of exercise: walking and normal ROM and activity frequency: daily Evaluation Evaluation Baseline heart rate: 130 Variability: Moderate (11-25) monitor accelerations: Absent Monitor Decelerations: Absent Category of Tracing: Reactive Diagnosis, Plan/Disposition Final Diagnosis (1) 36 weeks gestation of : Status: Acute (2) Decreased movement: Status: Acute Plan/Disposition Plan: 25-year-old at 36 weeks gestation with reports of decreased movement the last 2 days. She denies contractions other than Mccreary Rendon, leaking or bleeding. NST reactive with copious movement. Patient reassured. Follow-up in 1 week as scheduled.
== END 2021-01-05 14:13 | disposition home or self-care (01) ==
PROVIDERS: Admitting Provider Family Medicine; PCP Family Medicine; Referring Provider Family Medicine; Visit Provider Family Medicine
DX: O36.8130 Decreased fetal movements, third trimester, not applicable or unspecified (principal); Z3A.36 36 weeks gestation of pregnancy
CPT/HCPCS: 59025; G0378; G0379

== ENCOUNTER 2021-01-27 20:28 | Inpatient (IN) | payer OTHER, MEDICAID, SELFPAY ==
--- NOTE | 2021-01-27 20:59 | PM.OBHP.1 ---
OB HPI Date/Time Date of admission: 01/27/21 Date Patient Seen: 01/27/21 Time Patient Seen: 20:59 History of Present Condition Chief complaint: labor : 2 Para: 1 Estimated Date of Delivery: 02/01/21 Estimated Gestational Age (weeks): 39+2 Narrative: Pearl Araujo is a 25 year old female at 39+2 wks gestation who presents in active labor. Indications Other reason(s) for admission: Active labor History of Present care: good care, initiated at week # (7), number of visits (14) and pounds weight gain (26) Dating criteria: LMP confirmed by 1st trimester US Ultrasounds: normal 1st trimester US and normal mid trimester US Obstetrical complications: none Medical complications: none Preadmission Labs Blood type: B (+) positive -: Antibody screen: negative, GBS status: negative, HBsAG: negative, HIV: negative and RPR/VDLR: negative -: Chlamydia screen: not detected and Gonorrhea screen: not detected -: Rubella: immune and Varicella: immune HCT: 28.8 HCAB: negative PAP: Normal Cell-free DNA: Normal male Urine: Negative 1 hr GTT: 123 Prior (ies) History: 1 with rapid labor at 39 weeks Evaluation Evaluation Baseline heart rate: 135 Variability: Moderate (11-25) monitor accelerations: Present Monitor Decelerations: Absent Contraction Frequency (minutes): 3 Uterine Contraction Intensity: Moderate Status: Category l Cervical dilation (cm): 4 Cervical effacement (%): 100 station: -1 Non-invasive Membranes Rupture Test: negative PFS Medical History Anxiety (~1994) Arm fracture, right (~2006) Asthma Depression (~2007) Eczema (2015) Finger pain (~04/2020) Gluten-sensitive enteropathy (2014) Hayfever (~2004) Migraines (~2004) Surgical History No history of previous surgery (06/06/16) Family History Father Age: 57 Essential hypertension High cholesterol Grandfather Age: 74 Rectal cancer Grandmother Age: 73 Sjogren's disease Mother Age: 53 Gluten free diet Peanut allergy Grandfather Age: 85 Heart disease Brother No problems noted. Grandmother Myocardial infarction acute Stroke Sister Anxiety Depression Social History marital status: unmarried,living together number of children: 1 household members: spouse and children lives independently: Yes caregiver/support person: No housing: house pets and animals: Yes (2 dogs, safe. ) education level: college occupational status: unemployed current occupational exposures/hazards: No blanquita/denominational: Taoist special blanquita needs: No Smoking Status: Former smoker Tobacco: How many years used: 4 quit status: has quit before alcohol intake: current substance use type: marijuana during the past year weight has: remained stable well-balanced diet: daily or most days daily servings fruits/ve-4 caffeine: Yes (Coffee, aversion lately. ) Type(s) of exercise: walking and normal ROM and activity frequency: daily Meds Home Medications and Allergies Home Medications Medication Instructions Recorded Confirmed Type vits no.126-ferrous fum 1 tab PO DAILY 90 Days #90 tab 06/11/20 10/12/20 Rx 28 mg iron-folic acid 800 mcg tablet (Classic ) metoclopramide HCl 10 mg tablet 10 mg PO Q6H PRN #20 tab 08/14/20 10/12/20 Rx (Reglan) acyclovir 400 mg tablet See Rx Instructions .ROUTE 10/21/20 Rx .COMPLEX #60 tab ferrous sulfate 325 mg (65 mg 325 mg PO DAILY #30 tab 11/26/20 Rx iron) tablet,delayed release omeprazole 20 mg capsule,delayed 20 mg PO BID #60 cap 12/28/20 12/28/20 Rx release Allergies Allergy/AdvReac Type Severity Reaction Status Date / Time Penicillins Allergy Severe rash Verified 10/12/20 16:14 gluten AdvReac Intermediate Sharp Verified 10/12/20 16:14 stomach pain, constipation, nausea. Exam Narrative Exam Narrative: Generally: No acute distress Lungs: Clear to auscultation bilaterally Cardiovascular: Regular rate and rhythm Fundal height: 39 cm Estimated weight: 7 lb Extremities: No edema, 1+ DTRs Assessment and Plan Assessment and Plan Assessment and Plan narrative: Assessment: 25-year-old 2 para 1 at 39-,2/7 weeks gestation in active labor History of rapid delivery Group B strep negative Plan: Expected management to spontaneous vaginal delivery
[2021-01-27 21:54] LABS: Add Manual Diff / Slide Review NO; Basophils Absolute Auto 100 /uL (0-100); Basophils Percent Auto 0.8 % (0-2); Eosinophils Absolute Auto 100 /uL (0-450); Eosinophils Percent Auto 1.7 % (2-4); Hematocrit 33.8 % (36-46); Hemoglobin 11.2 g/dL (12.0-16.0); Lymphocytes Absolute Auto 1900 /uL (1100-4500); Lymphocytes Percent Auto 24.7 % (25-40); Mean Corpuscular HGB Conc 33.2 % (30-36); Mean Corpuscular Hemoglobin 28.6 PG (26-34); Mean Corpuscular Volume 86.2 fL (80-100); Monocytes Absolute Auto 500 /uL (0-900); Monocytes Percent Auto 6.8 % (3-14); Neutrophils Absolute Auto 5000 /uL (1500-7000); Platelet Count 185 X10^3/uL (150-400); Red Blood Cell Count 3.92 X10^6/uL (4.0-5.2); White Blood Cell Count 7.5 X10^3/uL (4.5-11.0)
[2021-01-27 22:12] VITALS: BP 114/68
[2021-01-27 22:44] LABS: COVID19 - ADMIT (NP swab/PCR) Negative (Negative)
--- NOTE | 2021-01-27 23:02 | PM.OBPRVD ---
Labor & Delivery Delivery date: 01/27/21 Intrapartal Events: None Cervical ripening method: none Induction method: none Delivery augmentation: rupture of membranes Delivery monitor: external FHT Route of delivery: Episiotomy description: None L&D Laceration Description: None Estimated blood loss (mL): 100 Anesthesia Type: None Complications: None Narrative: PROCEDURE: at 39w2d presented in active labor and was admitted to Labor and Delivery. The patient progressed through the 1st stage over 2 hours. Pain was controlled by natural methods. AROM was performed with production of clear fluid. FHT were primarily Category I with brief Category II due to a few variable decels. The patient progressed through the 2nd stage over 4 minutes and delivered a viable male infant with APGARs 9/9 at 22:41 via without complications. Nuchal cord x 1 was reduced after delivery. The cord was cut and clamped after it stopped pulsating. The perineum and vagina were inspected with no lacerations. PREPROCEDURE DIAGNOSIS: Intrauterine at 39w2d GBS negative RH positive POSTPROCEDURE DIAGNOSIS: Intrauterine at 39w2d, delivered Same as preprocedure Serafina Baby 1: gender: Male Presentation: vertex Position: Left Occiput Anterior Placenta delivery description: Spontaneous Cord Vessel Description: 3 Vessels and Nuchal Cord (x1) score (1 min): 9 score (5 min): 9 weight: 7 lb 8.214 oz Plan for aftercare: Routine care
[2021-01-28] MEDS: IBUPROFEN 600 MG TABLET PO ×2 (06:25→15:09)
[2021-01-28] MEDS: ACETAMINOPHEN 325 MG TABLET 650 MG PO (06:26)
--- NOTE | 2021-01-28 07:15 | P.DS_ITS ---
Discharge Providers Provider Date of admission: 01/27/21 20:28 Discharge Date: 01/28/21 Primary care physician: Mindy Hurst DO Consults: 01/28/21 23:07 Consult to Microfabrication Engineer Manager Routine Comment: Discharge provider: Deborah Harrington MD Summary Hospital Course Date Patient Seen: 01/28/21 Time Patient Seen: 07:34 Diagnoses: Intrauterine at 39w2d GBS negative RH positive Hospital Course: The patient presented in active labor. AROM was performed with production of clear fluid. She progressed to complete using natural meds for pain control. She has spontaneous vaginal delivery of a viable baby boy on 01/27/2021. There were no lacerations. There were no complications with delivery. , there are also no complications. At the time of discharge she was voiding, ambulating, passing flatus without difficulty. Her lochia was decreasing appropriately. Her pain was adequately controlled. She is breast-feeding with good latch. She will follow up in clinic in 6 weeks for her check. She plans to use natural family planning for contraception. Peripartum Data Delivery Method: Natural Vaginal Laceration Description: None Episiotomy description: None Procedures: Spontaneous vaginal delivery complications: none 1: Gender: Male Disposition of : home Discharge Diagnosis (1) Spontaneous vaginal delivery: Status: Acute Status at Discharge Cognitive/behavioral status at discharge: oriented Functional status at discharge: independent ambulation Overall status at discharge: patient is progressing back to baseline Time Spent with Patient Time attestation: Total time spent providing and/or coordinating discharge services: Objective Labs Result Diagrams: 01/27/21 21:00 Labs: Laboratory Results - last 24 hr 01/27/21 01/27/21 01/27/21 21:00 21:00 21:00 WBC 7.5 RBC 3.92 L Hgb 11.2 L Hct 33.8 L MCV 86.2 MCH 28.6 MCHC 33.2 RDW 15.0 H Plt Count 185 Neut % (Auto) 66.0 Lymph % (Auto) 24.7 L [place] % (Auto) 6.8 Eos % (Auto) 1.7 L Baso % (Auto) 0.8 Neut # (Auto) 5000 Lymph # (Auto) 1900 [place] # (Auto) 500 Eos # (Auto) 100 Baso # (Auto) 100 SARS-CoV-2 (PCR) Negative Blood Type B Positive Antibody Screen Negative Exam Narrative Exam Narrative: Gen: NAD, sitting comfortably in bed, appears well CV: RRR, no murmurs Resp: clear to auscultation bilaterally Abd: soft, appropriately tender, fundus firm and below the umbilicus, nondistended Ext: no edema Discharge Plan Discharge Plan Patient Disposition: Home Discharge orders & Medications Prescriptions: New acetaminophen 325 mg Tablet 650 mg PO Q6HR PRN (Reason: Pain, Mild (1-3)) Qty: 30 RF: 0 docusate sodium [DOK] 100 mg Capsule 100 mg PO DAILY Qty: 30 RF: 0 ibuprofen 600 mg Tablet 600 mg PO Q6HR PRN (Reason: Pain, Mild (1-3)) Qty: 30 RF: 0 Continued omeprazole 20 mg capsule,delayed release(DR/EC) 20 mg PO BID Qty: 60 RF: 0 ferrous sulfate 325 mg (65 mg iron) tablet,delayed release (DR/EC) 325 mg PO DAILY Qty: 30 RF: 5 Classic 28 mg iron- 800 mcg tablet 1 tab PO DAILY 90 Days Qty: 90 RF: 3 Discontinued acyclovir 400 mg tablet See Rx Instructions .ROUTE .COMPLEX Qty: 60 RF: 0 metoclopramide HCl [Reglan] 10 mg tablet 10 mg PO Q6H PRN (Reason: nausea and vomiting) Qty: 20 RF: 0 Follow up/Referrals: Mindy Hurst DO [Primary Care Provider] - 6 Weeks Diet/Activity/Treatments Diet: Diet as Tolerated and Regular Skin/Wound/Dressing Care Report to your healthcare provider any signs of infection, such as:: chills, fe taurus, increased pain and unusual drainage Visit Report/Discharge Packet Instructions: DI for Labor and Delivery, Vaginal Visit Report Forms: Patient Portal/API, Stroke Signs & Symptoms Discharge Data Primary Care Provider: Mindy Hurst
[2021-01-28] MEDS: PRENATAL VIT,CALC/IRON/FOLIC 1 TABLET 1 TAB PO (09:52)
[2021-01-28] MEDS: DOCUSATE 100 MG CAPSULE PO (09:52)
[2021-01-28] MEDS: CALCIUM CARBONATE 500 MG TAB 1000 MG PO (12:09)
== END 2021-01-28 19:45 | disposition home or self-care (01) | DRG 560 ==
PROVIDERS: Admitting Provider Obstetrics & Gynecology; PCP Family Medicine; Referring Provider Obstetrics & Gynecology; Visit Provider Obstetrics & Gynecology
DX: O76 Abnormality in fetal heart rate and rhythm complicating labor and delivery (principal); O69.81X0 Labor and delivery complicated by cord around neck, without compression, not applicable or unspecified; Z3A.39 39 weeks gestation of pregnancy; Z37.0 Single live birth; Z20.822 Contact with and (suspected) exposure to COVID-19
CPT/HCPCS: 36415; 59050; 59409; 85025; 86850; 86900; 86901; 87635; C9803

== ENCOUNTER → 2021-05-19 11:14 | Outpatient (CLI) | payer OTHER, MEDICAID, SELFPAY ==
[2021-05-19 12:14] LABS: Appearance Urine UA CLEAR; Bilirubin Urine UA NEGATIVE (NEGATIVE); Glucose Urine UA NEGATIVE (Negative); Ketones Urine UA NEGATIVE (NEGATIVE); Leukocyte Esterase Urine UA 1+ (NEGATIVE); Nitrite Urine UA NEGATIVE (Negative); Occult Blood Urine UA 2+ (Negative); Protein Urine UA NEGATIVE (Negative); Specific Gravity Urine UA <=1.005 (1.000-1.035); Urobilinogen Urine UA 0.2 E.U./dL (0.2)
[2021-05-19 12:57] LABS: Color Urine UA Straw; pH Urine UA 6.5 (4.5-8.0)
[2021-05-19 12:58] LABS: Bacteria Urine Moderate (10-30); RBC Urine 0-1/HPF (0-5/HPF); Squamous Epithelial Cell Urine 0-1 /HPF (0-5/HPF); WBC Urine 5-10/HPF (0-5/HPF)
[2021-05-19 12:59] LABS: Culture Indicated Urine Specimen Cultured
== END ==
PROVIDERS: PCP Family Medicine; Referring Provider Family Medicine; Visit Provider Family Medicine
DX: R30.0 Dysuria (principal)
CPT/HCPCS: 81001; 87077; 87086; 87186

== ENCOUNTER → 2022-06-12 09:06 | Outpatient (CLI) | payer OTHER, MEDICAID, SELFPAY | PROVIDERS: PCP Family Medicine; Visit Provider Student in an Organized Health Care Education/Training Program | DX: R30.0 Dysuria (principal) | CPT/HCPCS: 81002; 87077; 87086 ==

== ENCOUNTER 2022-09-02 13:31 | Emergency (ER) | payer OTHER, MEDICAID, SELFPAY ==
[2022-09-02] VITALS (25 sets, daily range): BP systolic 85–107; BP diastolic 52–66; PULSE 99–121; RESP 18; TEMP 36.7; O2SAT 96–100; BMI 22.2
[2022-09-02] MEDS: ONDANSETRON 4 MG/2 ML INJ IV (14:08)
[2022-09-02 14:15] LABS: Add Manual Diff / Slide Review NO; Basophils Absolute Auto 0 /uL (0-100); Basophils Percent Auto 0.1 % (0-2); Eosinophils Absolute Auto 100 /uL (0-450); Eosinophils Percent Auto 0.8 % (2-4); Hemoglobin 14.9 g/dL (12.0-16.0); Lymphocytes Absolute Auto 500 /uL (1100-4500); Lymphocytes Percent Auto 6.5 % (25-40); Mean Corpuscular HGB Conc 33.9 % (30-36); Mean Corpuscular Hemoglobin 29.3 PG (26-34); Mean Corpuscular Volume 86.5 fL (80-100); Monocytes Absolute Auto 200 /uL (0-900); Monocytes Percent Auto 2.7 % (3-14); Neutrophils Absolute Auto 7600 /uL (1500-7000); Neutrophils Percent Auto 89.9 % (50-75); Platelet Count 265 X10^3/uL (150-400); Red Blood Cell Count 5.08 X10^6/uL (4.0-5.2); White Blood Cell Count 8.4 X10^3/uL (4.5-11.0)
[2022-09-02 14:31] LABS: Alanine Aminotransferase 21 IU/L (<35); Albumin 4.5 g/dL (3.5-5.0); Albumin Globulin Ratio 1.4 (1.0-2.8); Alkaline Phosphatase 60 U/L (38-126); Aspartate Aminotransferase 29 IU/L (14-36); BUN Creatinine Ratio 27.1 (6-22); Blood Urea Nitrogen 19 mg/dL (7-17); Calcium 8.9 mg/dL (8.4-10.2); Carbon Dioxide 21 mmol/L (22-32); Chloride 103 mmol/L (98-107); Estimated Glomerular Filt Rate > 60 mL/min (>60); Globulin 3.2 g/dL (1.7-4.1); Glucose 102 mg/dL (70-100); HEMOLYSIS < 15 (0-50); Lipase 474 U/L (23-300); Potassium 3.8 mmol/L (3.4-5.1); Sodium 136 mmol/L (137-145); Total Protein 7.7 g/dL (6.3-8.2)
--- NOTE | 2022-09-02 15:43 | ED.ABDPAIN ---
HPI - Abdominal Pain <Carmelo Escobar PA-C - Last Filed: 09/02/22 18:16> General Chief Complaint: Abdominal Pain Stated Complaint: Sent by [facility] symptoms of food poisoning or flu Time Seen by Provider: 09/02/22 15:32 Source: patient Mode of arrival: Ambulatory History of Present Illness HPI narrative: This is a 27-year-old female presents to the emergency department presents to the emergency department due to acute onset nausea and vomiting and diarrhea onset about 2:00 a.m. this morning, approximately 12 hours ago. She states that she is been vomiting nearly every hour as well as multiple episodes of diarrhea. Denies any blood in the diarrhea or vomit. Reports generalized abdominal discomfort. Denies any fevers, chest pain, shortness of breath, vaginal pain, pelvic pain, vaginal discharge, vaginal bleeding, or any UTI symptoms. No history of abdominal surgeries. Related Data Previous Rx's Medication Instructions Recorded vits no.126-ferrous fum 1 tab PO DAILY 90 days #90 tabs 06/11/20 28 mg iron-folic acid 800 mcg tablet (Classic ) ferrous sulfate 325 mg (65 mg 325 mg PO DAILY #30 tabs 11/26/20 iron) tablet,delayed release omeprazole 20 mg capsule,delayed 20 mg PO BID #60 caps 12/28/20 release acetaminophen 325 mg tablet 650 mg PO Q6HR PRN Pain, Mild 01/28/21 (1-3) #30 tabs docusate sodium 100 mg capsule 100 mg PO DAILY #30 caps 01/28/21 (DOK) ibuprofen 600 mg tablet 600 mg PO Q6HR PRN Pain, Mild 01/28/21 (1-3) #30 tabs phenazopyridine 100 mg tablet 100 mg PO TID PRN pain 6 doses #6 06/12/22 (Pyridium) tabs ondansetron 4 mg disintegrating 4 mg PO Q6H PRN nausea and 09/02/22 tablet vomiting #14 tabs ondansetron 4 mg disintegrating 4 mg PO Q8H PRN nausea and 09/02/22 tablet vomiting #20 tabs Allergies Allergy/AdvReac Type Severity Reaction Status Date / Time Penicillins Allergy Severe rash Verified 09/02/22 10:48 gluten AdvReac Intermediate Sharp Verified 09/02/22 10:48 stomach pain, constipation, nausea. Review of Systems <Carmelo Escobar PA-C - Last Filed: 09/02/22 18:16> Review of Systems Narrative: GENERAL: Denies chills, fatigue, malaise, fever, sweats. HEENT: Denies sinus pain, ear pain, sore throat, difficulty swallowing, dizziness. RESPIRATORY: Denies dyspnea, cough, wheezing, hemoptysis, sputum. CARDIOVASCULAR: Denies chest pain, palpitations, orthopnea, edema, GASTROINTESTINAL: Reports nausea, vomiting, diarrhea,, abdominal pain, denies, constipation, melena. : Denies dysuria, frequency, incontinence, hematuria, urinary retention. MUSCULOSKELETAL: denies weakness, joint pain, or bony pain SKIN: Denies rash, skin lesions, or other NEUROLOGIC: Denies weakness, headache, numbness, change in speech, confusion, seizures, incoordination. PSYCHIATRIC: No concerning psychosocial issues. 12 point review of systems is negative except for those stated above Patient History <Carmelo Escobar PA-C - Last Filed: 09/02/22 18:16> Medical History Anxiety (~1994) Arm fracture, right (~2006) Asthma Depression (~2007) Eczema (2015) Finger pain (~04/2020) Gluten-sensitive enteropathy (2014) Hayfever (~2004) Migraines (~2004) Spontaneous vaginal delivery Surgical History No history of previous surgery (06/06/16) Family History Father Age: 59 Essential hypertension High cholesterol Grandfather Age: 76 Rectal cancer Grandmother Age: 75 Sjogren's disease Mother Age: 55 Gluten free diet Peanut allergy Grandfather Age: 87 Heart disease Brother No problems noted. Grandmother Myocardial infarction acute Stroke Sister Anxiety Depression Social History marital status: unmarried,living together number of children: 1 household members: spouse and children lives independently: Yes caregiver/support person: No housing: house pets and animals: Yes (2 dogs, safe. ) education level: college occupational status: unemployed current occupational exposures/hazards: No blanquita/baptist: [employer] special blanquita needs: No Smoking Status: Former smoker Tobacco: How many years used: 4 quit status: has quit before alcohol intake: current substance use type: marijuana during the past year weight has: remained stable well-balanced diet: daily or most days daily servings fruits/ve-4 caffeine: Yes (Coffee, aversion lately. ) Type(s) of exercise: walking and normal ROM and activity frequency: daily Smoking Status: Former smoker alcohol intake frequency: a few times a month Substance Use Type: marijuana Exam <Carmelo Escobar PA-C - Last Filed: 09/02/22 18:16> Narrative Exam Narrative: GENERAL: Well-developed patient, in mild distress. HEAD: Atraumatic. Normocephalic. EYES: Pupils equal round and reactive. Extraocular motions intact. No scleral icterus. No injection or drainage. ENT: Nose without bleeding, purulent drainage. Throat without erythema, tonsillar hypertrophy or exudate. Airway patent. NECK: Trachea midline. Non tender CARDIOVASCULAR: Regular rate and rhythm without murmurs, gallops, or rubs. RESPIRATORY: Clear to auscultation. Breath sounds equal bilaterally. No wheezes, rales, or rhonchi. GASTROINTESTINAL: Moderate generalized tenderness to palpation, nondistended EXTREMITIES: No edema or joint tenderness. BACK: Nontender without deformity or crepitance. No flank tenderness. NEURO: AOx3. SKIN: No rash or erythema of visible areas Initial Vital Signs Initial Vital Signs: Vital Signs Temperature 98.1 F 09/02/22 13:59 Pulse Rate 121 H 09/02/22 13:59 Respiratory Rate 18 09/02/22 13:59 Blood Pressure 107/60 09/02/22 13:59 Pulse Oximetry 100 09/02/22 13:59 Oxygen Delivery Method Room Air 09/02/22 13:59 <Keri Javier DO - Last Filed: 09/03/22 07:11> Initial Vital Signs Initial Vital Signs: Vital Signs Temperature 98.1 F 09/02/22 13:59 Pulse Rate 121 H 09/02/22 13:59 Respiratory Rate 18 09/02/22 13:59 Blood Pressure 107/60 09/02/22 13:59 Pulse Oximetry 100 09/02/22 13:59 Oxygen Delivery Method Room Air 09/02/22 13:59 Course <Carmelo Escobar PA-C - Last Filed: 09/02/22 18:16> Orders Ordered: Discontinued Medications Al Hydrox/Mg Hydrox/Simethicone (Mag Hydrox/Alum/Simeth 30 Ml Udc) 30 ml PO NOW ONE Stop: 09/02/22 18:00 Last Admin: 09/02/22 18:06 Dose: 30 ml Documented By: RB Sodium Chloride (Normal Saline 0.9%) 1,000 mls @ 1,000 mls/hr IV BOLUS ONE Stop: 09/02/22 16:38 Last Infusion: 09/02/22 17:11 Dose: 0 mls/hr Documented By: Admin: 09/02/22 16:13 Dose: 1,000 mls/hr Documented By: RB Sodium Chloride (Normal Saline 0.9%) 1,000 mls @ 1,000 mls/hr IV BOLUS ONE Stop: 09/02/22 16:52 Last Admin: 09/02/22 16:13 Dose: Not Given Documented By: RB Ketorolac Tromethamine (Ketorolac 30 Mg/Ml Vial) 15 mg IV NOW ONE Stop: 09/02/22 16:43 Last Admin: 09/02/22 16:47 Dose: 15 mg Documented By: RB Lidocaine HCl (Lidocaine Viscous 2% 15 Ml Solution) 15 ml PO NOW ONE Stop: 09/02/22 18:00 Last Admin: 09/02/22 18:06 Dose: 15 ml Documented By: RB Ondansetron HCl (Ondansetron 4 Mg Odt) 4 mg PO NOW PRN PRN Reason: Nausea And Vomiting Ondansetron HCl (Ondansetron 4 Mg/2 Ml Inj) 4 mg IV NOW PRN PRN Reason: Nausea And Vomiting Last Admin: 09/02/22 14:08 Dose: 4 mg Documented By: RB Pantoprazole Sodium (Pantoprazole Dr 20 Mg Tablet) 20 mg PO NOW ONE Stop: 09/02/22 18:00 Last Admin: 09/02/22 18:06 Dose: 20 mg Documented By: RB Vital Signs Vital signs: Vital Signs - 8 hr 09/02/22 13:59 09/02/22 16:39 Temperature 98.1 F Pulse Rate 121 H 105 H Respiratory Rate 18 Blood Pressure 107/60 Pulse Oximetry 100 99 Oxygen Delivery Method Room Air <Keri Javier DO - Last Filed: 09/03/22 07:11> Orders Ordered: Discontinued Medications Al Hydrox/Mg Hydrox/Simethicone (Mag Hydrox/Alum/Simeth 30 Ml Udc) 30 ml PO NOW ONE Stop: 09/02/22 18:00 Last Admin: 09/02/22 18:06 Dose: 30 ml Documented By: RB Sodium Chloride (Normal Saline 0.9%) 1,000 mls @ 1,000 mls/hr IV BOLUS ONE Stop: 09/02/22 16:38 Last Infusion: 09/02/22 17:11 Dose: 0 mls/hr Documented By: Admin: 09/02/22 16:13 Dose: 1,000 mls/hr Documented By: RB Sodium Chloride (Normal Saline 0.9%) 1,000 mls @ 1,000 mls/hr IV BOLUS ONE Stop: 09/02/22 16:52 Last Admin: 09/02/22 16:13 Dose: Not Given Documented By: RB Ketorolac Tromethamine (Ketorolac 30 Mg/Ml Vial) 15 mg IV NOW ONE Stop: 09/02/22 16:43 Last Admin: 09/02/22 16:47 Dose: 15 mg Documented By: RB Lidocaine HCl (Lidocaine Viscous 2% 15 Ml Solution) 15 ml PO NOW ONE Stop: 09/02/22 18:00 Last Admin: 09/02/22 18:06 Dose: 15 ml Documented By: RB Ondansetron HCl (Ondansetron 4 Mg Odt) 4 mg PO NOW PRN PRN Reason: Nausea And Vomiting Ondansetron HCl (Ondansetron 4 Mg/2 Ml Inj) 4 mg IV NOW PRN PRN Reason: Nausea And Vomiting Last Admin: 09/02/22 14:08 Dose: 4 mg Documented By: RB Pantoprazole Sodium (Pantoprazole Dr 20 Mg Tablet) 20 mg PO NOW ONE Stop: 09/02/22 18:00 Last Admin: 09/02/22 18:06 Dose: 20 mg Documented By: RB Vital Signs Vital signs: Vital Signs - 8 hr 09/02/22 13:59 09/02/22 16:39 Temperature 98.1 F Pulse Rate 121 H 105 H Respiratory Rate 18 Blood Pressure 107/60 Pulse Oximetry 100 99 Oxygen Delivery Method Room Air MDM - Abdominal Pain <Carmelo Escobar PA-C - Last Filed: 09/02/22 18:16> Lab Data 09/02/22 13:55 09/02/22 13:55 Labs: Lab Results 09/02/22 09/02/22 09/02/22 Range/Units 13:55 13:55 16:00 WBC 8.4 (4.5-11.0) X10^3/uL RBC 5.08 (4.0-5.2) X10^6/uL Hgb 14.9 (12.0-16.0) g/dL Hct 44.0 (36-46) % MCV 86.5 (80-100) fL MCH 29.3 (26-34) PG MCHC 33.9 (30-36) % RDW 14.0 (11.6-14.8) % Plt Count 265 (150-400) X10^3/uL Neut % (Auto) 89.9 H (50-75) % Lymph % (Auto) 6.5 L (25-40) % [place] % (Auto) 2.7 L (3-14) % Eos % (Auto) 0.8 L (2-4) % Baso % (Auto) 0.1 (0-2) % Neut # (Auto) 7600 H (1107-4966) /uL Lymph # (Auto) 500 L (1872-9535) /uL [place] # (Auto) 200 (0-900) /uL Eos # (Auto) 100 (0-450) /uL Baso # (Auto) 0 (0-100) /uL Sodium 136 L (137-145) mmol/L Potassium 3.8 (3.4-5.1) mmol/L Chloride 103 (98-107) mmol/L Carbon Dioxide 21 L (22-32) mmol/L BUN 19 H (7-17) mg/dL Creatinine 0.70 (0.52-1.04) mg/dL Estimated GFR > 60 (>60) mL/min BUN/Creatinine Ratio 27.1 H (6-22) Glucose 102 H (70-100) mg/dL Calcium 8.9 (8.4-10.2) mg/dL Total Bilirubin 1.0 (0.2-1.3) mg/dL AST 29 (14-36) IU/L ALT 21 (<35) IU/L Alkaline Phosphatase 60 (38-126) U/L Total Protein 7.7 (6.3-8.2) g/dL Albumin 4.5 (3.5-5.0) g/dL Globulin 3.2 (1.7-4.1) g/dL Albumin/Globulin Ratio 1.4 (1.0-2.8) Lipase 474 H (23-300) U/L Ur Bilirubin Confirm Negative (Negative) Urine RBC 5-10/hpf H (0-5/HPF) Urine WBC 1-5/hpf (0-5/HPF) Ur Squamous Epith Cells 5-10 /hpf H (0-5/HPF) Amorphous Sediment 1+ Urine Bacteria Moderate (10-30) H (None) Urine Mucus 1+ H (Negative) Point of care testing: Point of Care Testing Test Results Negative Urine Dip Bedside Urine Glucose Negative Bedside Urine Bilirubin ++ 2 Bedside Urine Ketone +++ 80 Urine Specific [place] 1.015 Bedside Urine Occult Blood +++ Bedside Urine pH 6.0 Bedside Urine Protein +/- 15 Bedside Urine Urobilinogen 0.2 Bedside Urine Nitrite - Negative Bedside Urine Leukocytes - Negative Esterase MDM Narrative Medical decision making narrative: MDM * differential diagnosis includes but not limited to gastroenteritis, appendicitis, cholecystitis * Prior records reviewed: Patient was last seen here 2 years ago for vomiting and . Suspected to be food poisoning. Gallbladder ultrasound is unremarkable. Plan was for watchful waiting and fluids were given as well as a prescription for Zofran. Patient was seen in the walk-in clinic just prior to arrival. Due to vomiting and diarrhea onset 0 300 this morning. Also having diarrhea hourly and feeling lightheaded. Patient was advised to come to the emergency department for IV fluids. * My lab interpretation: No leukocytosis. Not anemic. She very mildly hyponatremic 36. Lipase also elevated at 474 although low suspicion for acute pancreatitis due to lack of epigastric abdominal pain as well as amount of elevation lipase level. * My imgaing interpretation: None * Clinical Decision Rules/Scores evaluated: None * Independent discussions with: None ED Course: This is a 27-year-old female presents emergency department due to suspected viral gastroenteritis. Patient's symptoms began suddenly with acute onset vomiting and diarrhea. Patient was given a L of fluids in the emergency department, Zofran, as well as Toradol which helped to relieve her symptoms. Shared decision making was utilized and no CT of the abdomen and pelvis was ordered. Patient had completely normal lab work. Suspect viral gastroenteritis improve or days. Recommended bland diet and Zofran prescribed. Shared Decision Making: As above Social Considerations: None Disposition: Discharged to home <Keri Javier DO - Last Filed: 09/03/22 07:11> Lab Data Labs: Lab Results 09/02/22 09/02/22 09/02/22 Range/Units 13:55 13:55 16:00 WBC 8.4 (4.5-11.0) X10^3/uL RBC 5.08 (4.0-5.2) X10^6/uL Hgb 14.9 (12.0-16.0) g/dL Hct 44.0 (36-46) % MCV 86.5 (80-100) fL MCH 29.3 (26-34) PG MCHC 33.9 (30-36) % RDW 14.0 (11.6-14.8) % Plt Count 265 (150-400) X10^3/uL Neut % (Auto) 89.9 H (50-75) % Lymph % (Auto) 6.5 L (25-40) % [place] % (Auto) 2.7 L (3-14) % Eos % (Auto) 0.8 L (2-4) % Baso % (Auto) 0.1 (0-2) % Neut # (Auto) 7600 H (2417-5456) /uL Lymph # (Auto) 500 L (2823-7766) /uL [place] # (Auto) 200 (0-900) /uL Eos # (Auto) 100 (0-450) /uL Baso # (Auto) 0 (0-100) /uL Sodium 136 L (137-145) mmol/L Potassium 3.8 (3.4-5.1) mmol/L Chloride 103 (98-107) mmol/L Carbon Dioxide 21 L (22-32) mmol/L BUN 19 H (7-17) mg/dL Creatinine 0.70 (0.52-1.04) mg/dL Estimated GFR > 60 (>60) mL/min BUN/Creatinine Ratio 27.1 H (6-22) Glucose 102 H (70-100) mg/dL Calcium 8.9 (8.4-10.2) mg/dL Total Bilirubin 1.0 (0.2-1.3) mg/dL AST 29 (14-36) IU/L ALT 21 (<35) IU/L Alkaline Phosphatase 60 (38-126) U/L Total Protein 7.7 (6.3-8.2) g/dL Albumin 4.5 (3.5-5.0) g/dL Globulin 3.2 (1.7-4.1) g/dL Albumin/Globulin Ratio 1.4 (1.0-2.8) Lipase 474 H (23-300) U/L Ur Bilirubin Confirm Negative (Negative) Urine RBC 5-10/hpf H (0-5/HPF) Urine WBC 1-5/hpf (0-5/HPF) Ur Squamous Epith Cells 5-10 /hpf H (0-5/HPF) Amorphous Sediment 1+ Urine Bacteria Moderate (10-30) H (None) Urine Mucus 1+ H (Negative) Point of care testing: Point of Care Testing Test Results Negative Urine Dip Bedside Urine Glucose Negative Bedside Urine Bilirubin ++ 2 Bedside Urine Ketone +++ 80 Urine Specific [place] 1.015 Bedside Urine Occult Blood +++ Bedside Urine pH 6.0 Bedside Urine Protein +/- 15 Bedside Urine Urobilinogen 0.2 Bedside Urine Nitrite - Negative Bedside Urine Leukocytes - Negative Esterase Discharge Plan Departure Patient Disposition: Home Clinical Impression: Gastroenteritis Instructions: DI for Viral Gastroenteritis -- Adult Activity Restrictions/Additional Instructions: Thank you for coming to the [facility] Emergency Department today. As we discussed I have suspect if something called viral gastroenteritis. I suspect that it is viral and should improve over the next couple of days. Please do your best to keep monitoring fluids such as Gatorade or bland broth.. Please take the Zofran as prescribed. New lab work today was completely normal of low concern for any kind of acute life-threatening disease. I hope you feel better soon. Prescriptions: New ondansetron 4 mg tablet,disintegrating 4 mg PO Q8H PRN (Reason: nausea and vomiting) Qty: 20 0RF No Action phenazopyridine [Pyridium] 100 mg tablet 100 mg PO TID PRN (Reason: pain) Qty: 6 0RF omeprazole 20 mg capsule,delayed release(DR/EC) 20 mg PO BID Qty: 60 0RF ferrous sulfate 325 mg (65 mg iron) tablet,delayed release (DR/EC) 325 mg PO DAILY Qty: 30 5RF ondansetron 4 mg tablet,disintegrating 4 mg PO Q6H PRN (Reason: nausea and vomiting) Qty: 14 0RF Classic 28 mg iron- 800 mcg tablet 1 tab PO DAILY 90 Days Qty: 90 3RF Rx Instructions: Take one tablet by mouth daily. acetaminophen 325 mg Tablet 650 mg PO Q6HR PRN (Reason: Pain, Mild (1-3)) Qty: 30 0RF docusate sodium [DOK] 100 mg Capsule 100 mg PO DAILY Qty: 30 0RF ibuprofen 600 mg Tablet 600 mg PO Q6HR PRN (Reason: Pain, Mild (1-3)) Qty: 30 0RF Referrals: Mindy Hurst DO [Primary Care Provider] - Stand Alone Forms: Patient Portal/API <Keri Javier DO - Last Filed: 09/03/22 07:11> Cosign ED Attending Cosignature Attestation: I was immediately available in the department for consultation. Documentation has been reviewed.
[2022-09-02] MEDS: SODIUM CHLORIDE 0.9% 1,000 ML 1000 ML IV (16:13)
[2022-09-02] MEDS: KETOROLAC 30 MG/ML VIAL 15 MG IV (16:47)
[2022-09-02 16:54] LABS: Ictotest Urine Negative (Negative)
[2022-09-02 16:55] LABS: Amorphous Sediment Urine 1+; RBC Urine 5-10/HPF (0-5/HPF); Squamous Epithelial Cell Urine 5-10 /HPF (0-5/HPF); WBC Urine 1-5/HPF (0-5/HPF)
[2022-09-02 16:56] LABS: Bacteria Urine Moderate (10-30); Mucus Urine 1+ (Negative)
[2022-09-02] MEDS: MAG HYDROX/ALUM/SIMETH 30 ML UDC PO (18:06)
[2022-09-02] MEDS: PANTOPRAZOLE DR 20 MG TABLET PO (18:06)
[2022-09-02] MEDS: LIDOCAINE VISCOUS 2% 15 ML SOLUTION PO (18:06)
== END 2022-09-02 18:23 | disposition home or self-care (01) ==
PROVIDERS: Emergency Medicine; Emergency Provider Physician Assistant Medical; PCP Family Medicine
DX: K52.9 Noninfective gastroenteritis and colitis, unspecified (principal); R10.84 Generalized abdominal pain
CPT/HCPCS: 36415; 80053; 81003; 81015; 81025; 83690; 85025; 87086; 96361; 96374; 96375; 99284; J1885; J2405

== ENCOUNTER → 2022-11-04 10:55 | Outpatient (CLI) | payer OTHER, MEDICAID, SELFPAY ==
[2022-11-04 11:46] LABS: Hematocrit 40.8 % (36-46); Mean Corpuscular HGB Conc 34.2 % (30-36); Mean Corpuscular Hemoglobin 29.9 PG (26-34); Mean Corpuscular Volume 87.2 fL (80-100); Platelet Count 274 X10^3/uL (150-400); Red Blood Cell Count 4.67 X10^6/uL (4.0-5.2); Red Cell Distribution Width 13.4 % (11.6-14.8); White Blood Cell Count 4.8 X10^3/uL (4.5-11.0)
[2022-11-04 12:24] LABS: Alanine Aminotransferase 19 IU/L (<35); Albumin 4.7 g/dL (3.5-5.0); Albumin Globulin Ratio 1.6 (1.0-2.8); Alkaline Phosphatase 57 U/L (38-126); Aspartate Aminotransferase 21 IU/L (14-36); BUN Creatinine Ratio 18.3 (6-22); Bilirubin Total 0.5 mg/dL (0.2-1.3); Blood Urea Nitrogen 13 mg/dL (7-17); Calcium 9.2 mg/dL (8.4-10.2); Carbon Dioxide 30 mmol/L (22-32); Chloride 101 mmol/L (98-107); Estimated Glomerular Filt Rate > 60 mL/min (>60); Globulin 2.9 g/dL (1.7-4.1); Glucose 49 mg/dL (70-100); HEMOLYSIS < 15 (0-50); Potassium 3.8 mmol/L (3.4-5.1); Sodium 139 mmol/L (137-145); Total Protein 7.6 g/dL (6.3-8.2)
[2022-11-04 12:47] LABS: TSH w/ Reflex to FT4 1.29 uIU/mL (0.47-4.68)
== END ==
PROVIDERS: PCP Family Medicine; Referring Provider Nurse Practitioner Family; Visit Provider Nurse Practitioner Family
DX: R53.83 Other fatigue (principal); F32.9 Major depressive disorder, single episode, unspecified; F41.9 Anxiety disorder, unspecified
CPT/HCPCS: 36415; 80053; 84443; 85027

== ENCOUNTER → 2022-12-07 10:28 | Outpatient (CLI) | payer OTHER, MEDICAID, SELFPAY ==
[2022-12-07 11:51] LABS: BUN Creatinine Ratio 20.5 (6-22); Blood Urea Nitrogen 17 mg/dL (7-17); Calcium 9.2 mg/dL (8.4-10.2); Carbon Dioxide 29 mmol/L (22-32); Chloride 103 mmol/L (98-107); Estimated Glomerular Filt Rate > 60 mL/min (>60); Glucose 68 mg/dL (70-100); HEMOLYSIS < 15 (0-50); Potassium 4.1 mmol/L (3.4-5.1); Sodium 138 mmol/L (137-145)
== END ==
PROVIDERS: PCP Family Medicine; Referring Provider Physician Assistant; Visit Provider Physician Assistant
DX: E16.2 Hypoglycemia, unspecified (principal)
CPT/HCPCS: 36415; 80048

== ENCOUNTER → 2023-04-19 13:21 | Outpatient (CLI) | payer OTHER, MEDICAID, SELFPAY ==
--- NOTE | 2023-04-19 13:39 | DI.RAD.S_ITS ---
PROCEDURE: XR LUMBAR SPINE 2-3V INDICATIONS: back pain chronic TECHNIQUE: 3 views of the lumbar spine were acquired. COMPARISON: None. FINDINGS: Bones: 5 [id number] vertebrae are present. There is normal bony alignment. No vertebral body compression fractures. No suspicious bony lesions. Soft tissues: Overlying bowel gas pattern is normal. No suspicious soft tissue calcifications. IMPRESSION: No acute bony abnormality. Approved by: Vladislav James M.D. on 04/19/2023 at 19:14
--- NOTE | 2023-04-19 13:39 | DI.RAD.S_ITS ---
PROCEDURE: XR THORACIC SPINE 3V INDICATIONS: back pain chronic TECHNIQUE: 3 views of the thoracic spine were acquired. COMPARISON: None. FINDINGS: Bones: No fractures or dislocations. No suspicious bony lesions. 12 pairs of ribs are noted, and appear intact where visualized. Soft tissues: No paravertebral stripe thickening. IMPRESSION: No acute bony abnormality. Approved by: Vladislav James M.D. on 04/19/2023 at 19:14
[2023-04-19 14:31] LABS: Hemoglobin A1C% w Est Avg Glu 5.5 % (4.0-6.0)
[2023-04-19 14:41] LABS: BUN Creatinine Ratio 17.7 (6-22); Blood Urea Nitrogen 14 mg/dL (7-17); Calcium 9.8 mg/dL (8.4-10.2); Carbon Dioxide 25 mmol/L (22-32); Chloride 103 mmol/L (98-107); Estimated Glomerular Filt Rate > 60 mL/min (>60); Glucose 105 mg/dL (70-100); HEMOLYSIS < 15 (0-50); Potassium 4.3 mmol/L (3.4-5.1); Sodium 137 mmol/L (137-145)
== END ==
PROVIDERS: PCP Family Medicine; Referring Provider Family Medicine; Visit Provider Family Medicine
DX: Z00.00 Encounter for general adult medical examination without abnormal findings (principal); M54.50 Low back pain, unspecified; G89.29 Other chronic pain
CPT/HCPCS: 36415; 72072; 72100; 80048; 83036

== ENCOUNTER → 2023-06-13 12:24 | Outpatient (CLI) | payer OTHER, MEDICAID, SELFPAY ==
[2023-06-13 14:10] LABS: Appearance Urine UA CLEAR; Bilirubin Urine UA NEGATIVE (NEGATIVE); Color Urine UA YELLOW; Glucose Urine UA NEGATIVE (Negative); Ketones Urine UA NEGATIVE (NEGATIVE); Leukocyte Esterase Urine UA NEGATIVE (NEGATIVE); Nitrite Urine UA NEGATIVE (Negative); Occult Blood Urine UA 1+ (Negative); Protein Urine UA NEGATIVE (Negative); Urobilinogen Urine UA 0.2 E.U./dL (0.2)
[2023-06-13 14:19] LABS: Bacteria Urine Few (2-10); Culture Indicated Urine Cult Not Indicated; RBC Urine 0-1/HPF (0-5/HPF); Squamous Epithelial Cell Urine 0-1 /HPF (0-5/HPF); Transitional Epi Cells Urine 0-1/HPF (0-5/HPF); WBC Urine 0-1/HPF (0-5/HPF)
[2023-06-13 15:24] LABS: Urine N gonorrhoeae NOT DETECTED
[2023-06-13 15:25] LABS: Urine Chlamydia NOT DETECTED
== END ==
PROVIDERS: PCP Family Medicine; Visit Provider Family Medicine
DX: Z01.419 Encounter for gynecological examination (general) (routine) without abnormal findings (principal); N93.9 Abnormal uterine and vaginal bleeding, unspecified
CPT/HCPCS: 81001; 81002; 87491; 87591

== ENCOUNTER → 2023-07-07 14:09 | Outpatient (CLI) | payer OTHER, MEDICAID, SELFPAY ==
[2023-07-07 15:23] LABS: HCG Quantitative /Beta subunit < 2.4 mIU/mL
== END ==
PROVIDERS: PCP Family Medicine; Referring Provider Family Medicine; Visit Provider Family Medicine
DX: N91.2 Amenorrhea, unspecified (principal)
CPT/HCPCS: 84702

== ENCOUNTER → 2024-11-21 17:33 | Outpatient (CLI) | payer OTHER, SELFPAY | LOC: LAB 17:34 | PROVIDERS: PCP Nurse Practitioner Family; Visit Provider Registered Nurse | DX: J02.9 Acute pharyngitis, unspecified (principal) | CPT/HCPCS: 87070 ==

== ENCOUNTER → 2025-04-17 10:44 | Outpatient (CLI) | payer OTHER, SELFPAY ==
[2025-04-17 11:12] LABS: Add Manual Diff / Slide Review NO; Hematocrit 39.2 % (36-46); Hemoglobin 13.3 g/dL (12.0-16.0); Lymphocytes Absolute Auto 1300 /uL (1100-4500); Mean Corpuscular HGB Conc 33.9 % (30-36); Mean Corpuscular Hemoglobin 29.9 PG (26-34); Mean Corpuscular Volume 88.0 fL (80-100); Platelet Count 239 X10^3/uL (150-400)
[2025-04-17 11:31] LABS: HEMOLYSIS < 15 (0-50); Iron 146 ug/dL (37-170)
[2025-04-17 11:43] LABS: Percent Iron Saturation 44 % (15-50); Total Iron Binding Capacity 330 ug/dL (265-497); Transferrin 275 mg/dL (206-381)
[2025-04-17 12:05] LABS: TSH w/ Reflex to FT4 1.42 uIU/mL (0.47-4.68)
[2025-04-17 12:12] LABS: Ferritin 9 ng/mL (6-137)
== END ==
PROVIDERS: PCP Nurse Practitioner Family; Referring Provider Nurse Practitioner Family; Visit Provider Nurse Practitioner Family
DX: N93.9 Abnormal uterine and vaginal bleeding, unspecified (principal); R10.20 Pelvic and perineal pain unspecified side
CPT/HCPCS: 82728; 83540; 83550; 84146; 84443; 85025; 87086

== ENCOUNTER → 2025-04-21 16:32 | Outpatient (CLI) | payer OTHER, SELFPAY ==
--- NOTE | 2025-04-21 16:33 | DI.US.S_ITS ---
PROCEDURE: US PELVIC COMPLETE INDICATIONS: Pelvic pain TECHNIQUE: Real-time scanning was performed of the pelvic organs, with image documentation. Additional endovaginal scanning was necessary due to incomplete visualization of the adnexal and endometrial structures by transabdominal scanning. COMPARISON: [facility], , PELVIC COMPLETE, 09/27/2018, 10:00. FINDINGS: Uterus: 6.3 x 5.1 x 5.8 cm. Retroverted positioning. Endometrium measures 7 mm. Ovaries: Right ovary measures 11 mL. Left ovary is enlarged measuring 75 mL. There is a complex lesion with fluid contents and possible soft tissue component versus dense peripheral clot measuring 5.1 x 4.7 cm Other: No pathologic free abdominal or pelvic fluid. IMPRESSION: Complex left ovarian lesion possibly a solid cystic mass versus complex hemorrhagic lesion Left ovary is significantly enlarged. Pelvic MRI is suggested. . Dictated by: Keegan Roland M.D. on 04/21/2025 at 19:33 Approved by: Keegan Roland M.D. on 04/21/2025 at 19:37
== END ==
LOC: US 16:33
PROVIDERS: PCP Nurse Practitioner Family; Referring Provider Physician Assistant; Visit Provider Physician Assistant
DX: N83.8 Other noninflammatory disorders of ovary, fallopian tube and broad ligament (principal); N93.9 Abnormal uterine and vaginal bleeding, unspecified; R10.20 Pelvic and perineal pain unspecified side
CPT/HCPCS: 76830; 76856

== ENCOUNTER → 2025-05-05 18:43 | Outpatient (CLI) | payer OTHER, SELFPAY ==
--- NOTE | 2025-05-05 18:45 | DI.MRI.S_ITS ---
PROCEDURE: MR PELVIS WO/W CON INDICATIONS: left ovarian enlargement TECHNIQUE: Coronal HASTE, sagittal breath-hold T2 FSE; axial T1 FSE with and without fat saturation through the pelvis. Optional long- and short-axis uterine nonbreath-hold T2 FSE through the uterus. Sagittal or axial dynamic VIBE during administration of contrast. Post-contrast axial or coronal VIBE/2-D FLASH with fat saturation from the iliac crests to the symphysis. Optional diffusion weighted imaging and ADC may be performed. COMPARISON: None. FINDINGS: Image quality: Excellent. Uterus: Uterus is normal in size. Endometrium is normal in thickness at 10 mm. Junctional zone is thickened measuring approximately 15 mm. Adnexa: The bilateral ovaries demonstrate > 12 follicles. There is a 2.2 x 2.1 x 2.2 cm cystic lesion in the left ovary with thin internal septations and intrinsic peripheral T1 hyperintensity suggestive of a hemorrhagic component. The lesion is decreased in size from prior ultrasound when it measured 5.1 cm. No enhancing soft tissue nodularity is present. Urinary system: Bladder wall is normal in thickness. Distal ureters are non distended. Urethra appears normal in morphology. Nodes and vessels: No pelvic or inguinal adenopathy by size criteria. Iliac vessels are normal in size. Bowel and peritoneum: No pathologic free pelvic fluid. Inferior colon and small bowel loops are normal in caliber. Soft tissues: No inguinal hernias. No findings of pelvic floor incompetence in the absence of provocation. Bones: Marrow demonstrates normal overall signal. IMPRESSION: Hemorrhagic cyst in the left ovary measuring 2.2 cm, decreased in size from prior ultrasound, without concerning enhancement. Mildly thickened uterine junctional zone which may be seen with adenomyosis. Polycystic ovarian morphology bilaterally. Correlate with clinical context. Dictated by: Bobo Ramirez M.D. on 05/06/2025 at 1:57 Approved by: Bobo Ramirez M.D. on 05/06/2025 at 2:13
== END ==
LOC: MRI 18:44
PROVIDERS: PCP Nurse Practitioner Family; Referring Provider Nurse Practitioner Family; Visit Provider Nurse Practitioner Family
DX: N83.8 Other noninflammatory disorders of ovary, fallopian tube and broad ligament (principal); N83.202 Unspecified ovarian cyst, left side
CPT/HCPCS: 72197; A9579